=== PATIENT | female | born 1955 | race Caucasian/White ===

== ENCOUNTER 2016-11-21 10:09 | Emergency (ER) | payer OTHER ==
[~2016-11-21] VITALS: Ht 157.4 cm; Wt 1019.7 kg
[~2016-11-21 10:09] MED LIST: ALLERGY & CONG1 EACH PO; AMPICILLIN500 MG PO; ASPIRIN81 M1 PO; BACTRIM DS 8001 TA1 PO; CYCLOBENZAPRINE10 MG PO; DITROPAN XL5 MG PO; ESCITALOPRAM OX20 MG PO; FLOMAX0.4 MG PO; HYDROCODONE BIT1 T11 PO; K-TAB20 MEQ PO; LISINOPRIL/HCTZ1 TA3 PO; MACROBID100 M1 PO; MEDROL DOSEPAK4 MG PO; METFORMIN HCL500 MG PO; MOTRIN800 MG PO; NAPROSYN500 MG PO; NORCO 5-325 TA1 EACH PO; PAROXETIN10 MG PO; PAROXETINE HCL20 MG PO; PERCOCET 325 MG1 TA2 PO; PRILOSEC20 M1 PO; SIMVASTATIN10 MG PO; SYNTHROID,LEV100 MCG PO; TRAMADOL HCL50 MG PO; VICODIN 5/500 505 MG PO; VOLTAREN50 M1 PO; ZOFRAN ODT4 MG SL; ZOFRAN4 MG PO
[2016-11-21] MEDS ORDERED: NAPROSYN500 MG PO (11:49)
[2016-11-21] MEDS ORDERED: CYCLOBENZAPRINE10 MG PO (11:49)
== END 2016-11-21 12:11 | disposition home or self-care (01) ==
LOC: ED 10:09
DX: S13.9XXA Sprain of joints and ligaments of unspecified parts of neck, initial encounter (principal); Z79.82 Long term (current) use of aspirin; Z90.49 Acquired absence of other specified parts of digestive tract; X58.XXXA Exposure to other specified factors, initial encounter; Y93.89 Activity, other specified; Y92.9 Unspecified place or not applicable; Y99.9 Unspecified external cause status

== ENCOUNTER 2017-06-20 17:58 | Emergency (ER) | payer OTHER ==
[~2017-06-20] VITALS: Ht 157.4 cm; Wt 114.3 kg
[2017-06-20] MEDS ORDERED: CYCLOBENZAPRINE5 M3 PO (20:33)
[2017-06-20] MEDS ORDERED: NAPROSYN500 MG PO (20:33)
== END 2017-06-20 18:16 | disposition home or self-care (01) ==
LOC: ED 17:58
DX: M54.5 Low back pain (principal); R20.0 Anesthesia of skin; R20.2 Paresthesia of skin; Z79.899 Other long term (current) drug therapy

== ENCOUNTER 2017-07-24 20:10 | Emergency (ER) | payer OTHER ==
[~2017-07-24] VITALS: Ht 157.4 cm; Wt 108.0 kg
[~2017-07-24 20:10] MED LIST changes: +CYCLOBENZAPRINE5 M3 PO
== END 2017-07-24 21:56 | disposition home or self-care (01) ==
LOC: ED 20:10
DX: M17.12 Unilateral primary osteoarthritis, left knee (principal); Z79.899 Other long term (current) drug therapy

== ENCOUNTER → 2017-08-01 | Outpatient (CLI) | payer OTHER | END | disposition home or self-care (01) | LOC: US 00:31 | DX: K76.0 Fatty (change of) liver, not elsewhere classified (principal); Z90.49 Acquired absence of other specified parts of digestive tract ==

== ENCOUNTER 2017-09-17 12:20 | Emergency (ER) | payer OTHER ==
[~2017-09-17] VITALS: Ht 157.4 cm; Wt 108.0 kg
[2017-09-17 12:30] LABS: BASO % 0.7 % (0.0-1.0); EOS # 0.1 10*3/uL (0.0-0.4); HEMATOCRIT 37.5 % (37.0-47.0); HEMOGLOBIN 12.2 g/dl (12.0-16.0); LYMPH # 1.6 10*3/uL (1.3-4.4); LYMPH % 28.4 % (27.0-41.0); MEAN CELL VOLUME 85.4 fl (81.0-99.0); MEAN CORPUSCULAR HGB 27.8 pg (27.0-31.0); MEAN CORPUSCULAR HGB CONC 32.5 g/dl (33.0-37.0); MEAN PLATELET VOLUME 9.8 fl (9.6-12.3); MONO # 0.4 10*3/uL (0.1-1.0); MONO % 6.6 % (3.0-9.0); NEUT # 3.4 10*3/uL (2.3-7.9); NEUT % 62.1 % (47.0-73.0); PLATELET COUNT AUTOMATED 205 10*3/uL (130-400); RED BLOOD COUNT 4.39 10*6/uL (4.10-5.10); RED CELL DISTRI WIDTH 13.1 % (0-14.5); WHITE BLOOD COUNT 5.5 10*3/uL (4.8-10.8)
[2017-09-17 12:38] LABS: BILIRUBIN NEGATIVE (NEGATIVE); BLOOD NEGATIVE (NEGATIVE); CLARITY CLEAR (CLEAR); COLOR YELLOW (YELLOW); GLUCOSE NEGATIVE (NEGATIVE); KETONE NEGATIVE (NEGATIVE); LEUKO ESTERASE TRACE (NEGATIVE); NITRITE NEGATIVE (NEGATIVE); PH 5.5 (5.0-9.0); SPECIFIC GRAVITY 1.025 (1.005-1.030); UROBILINOGEN 0.2 E.U./dl (0.2-1.0)
[2017-09-17 12:51] LABS: ALBUMIN 3.5 gm/dl (3.1-4.5); ALKALINE PHOSPHATASE 121 U/L (45-117); BUN 18 mg/dl (7-24); CHLORIDE 112 mmol/L (98-107); CREATININE 0.95 mg/dL (0.55-1.02); POTASSIUM 4.3 mmol/L (3.5-5.1); SGOT/AST 24 IU/L (3-35); SGPT/ALT 33 U/L (12-78); SODIUM 144 mmol/L (136-145); TOTAL PROTEIN 6.8 gm/dL (6.4-8.2)
[2017-09-17 12:51] LABS: BACTERIA TRACE
[2017-09-17] MEDS ORDERED: PYRIDIUM200 M1 PO (14:06)
[2017-09-17] MEDS ORDERED: MACROBID100 M1 PO (14:06)
== END 2017-09-17 14:09 | disposition home or self-care (01) ==
LOC: ED 12:20
PROVIDERS: Nurse Practitioner Family
DX: N39.0 Urinary tract infection, site not specified (principal); R10.31 Right lower quadrant pain; Z90.710 Acquired absence of both cervix and uterus; Z90.49 Acquired absence of other specified parts of digestive tract; Z79.899 Other long term (current) drug therapy

== ENCOUNTER 2017-09-24 08:24 | Emergency (ER) | payer OTHER ==
[~2017-09-24] VITALS: Ht 157.4 cm; Wt 108.0 kg
[~2017-09-24 08:24] MED LIST changes: +PYRIDIUM200 M1 PO
[2017-09-24 08:59] LABS: BASO % 0.3 % (0.0-1.0); EOS # 0.1 10*3/uL (0.0-0.4); EOS % 1.8 % (1.0-4.0); HEMATOCRIT 38.8 % (37.0-47.0); HEMOGLOBIN 12.7 g/dl (12.0-16.0); LYMPH # 1.4 10*3/uL (1.3-4.4); LYMPH % 19.1 % (27.0-41.0); MEAN CELL VOLUME 85.5 fl (81.0-99.0); MEAN CORPUSCULAR HGB CONC 32.7 g/dl (33.0-37.0); MONO # 0.4 10*3/uL (0.1-1.0); MONO % 5.4 % (3.0-9.0); NEUT # 5.4 10*3/uL (2.3-7.9); NEUT % 73.1 % (47.0-73.0); PLATELET COUNT AUTOMATED 205 10*3/uL (130-400); RED BLOOD COUNT 4.54 10*6/uL (4.10-5.10); RED CELL DISTRI WIDTH 13.1 % (0-14.5); WHITE BLOOD COUNT 7.4 10*3/uL (4.8-10.8)
[2017-09-24 09:03] LABS: BILIRUBIN NEGATIVE (NEGATIVE); BLOOD NEGATIVE (NEGATIVE); CLARITY SL CLOUDY (CLEAR); COLOR YELLOW (YELLOW); GLUCOSE NEGATIVE (NEGATIVE); KETONE NEGATIVE (NEGATIVE); LEUKO ESTERASE TRACE (NEGATIVE); NITRITE NEGATIVE (NEGATIVE)
[2017-09-24 09:07] LABS: ACT PARTIAL THROMBO TIME 22.3 SECONDS (20.8-31.5); INTERNATIONAL NORM RATIO 0.9 (2.0-3.5)
[2017-09-24 09:15] LABS: ALBUMIN 3.7 gm/dl (3.1-4.5); ALKALINE PHOSPHATASE 127 U/L (45-117); BUN 16 mg/dl (7-24); CHLORIDE 109 mmol/L (98-107); CREATININE 0.81 mg/dL (0.55-1.02); POTASSIUM 3.9 mmol/L (3.5-5.1); SGOT/AST 24 IU/L (3-35); SGPT/ALT 38 U/L (12-78); SODIUM 142 mmol/L (136-145)
[2017-09-24 09:16] LABS: TROPONIN I < 0.015 ng/ml (<0.045)
[2017-09-24 09:26] LABS: BACTERIA 1+; EPITHELIAL CELLS 16-20
[2017-09-24] MEDS ORDERED: CIPRO500 MG PO (10:09)
== END 2017-09-24 10:14 | disposition home or self-care (01) ==
LOC: ED 08:24
PROVIDERS: Emergency Medicine
DX: N39.0 Urinary tract infection, site not specified (principal); R10.11 Right upper quadrant pain; E66.01 Morbid (severe) obesity due to excess calories; I10 Essential (primary) hypertension; Z87.442 Personal history of urinary calculi; Z90.710 Acquired absence of both cervix and uterus; Z90.49 Acquired absence of other specified parts of digestive tract; Z98.890 Other specified postprocedural states; Z79.899 Other long term (current) drug therapy

== ENCOUNTER 2017-09-30 13:33 | Emergency (ER) | payer OTHER ==
[~2017-09-30 13:33] MED LIST changes: +CIPRO500 MG PO
[2017-09-30 14:09] LABS: BILIRUBIN NEGATIVE (NEGATIVE); BLOOD NEGATIVE (NEGATIVE); CLARITY CLEAR (CLEAR); COLOR YELLOW (YELLOW); GLUCOSE NEGATIVE (NEGATIVE); KETONE NEGATIVE (NEGATIVE); LEUKO ESTERASE NEGATIVE (NEGATIVE); NITRITE NEGATIVE (NEGATIVE); PH 5.5 (5.0-9.0); SPECIFIC GRAVITY >= 1.030 (1.005-1.030); UROBILINOGEN 0.2 E.U./dl (0.2-1.0)
[2017-09-30 14:48] LABS: BASO % 0.4 % (0.0-1.0); EOS # 0.1 10*3/uL (0.0-0.4); EOS % 0.8 % (1.0-4.0); HEMATOCRIT 39.3 % (37.0-47.0); LYMPH # 2.1 10*3/uL (1.3-4.4); LYMPH % 19.7 % (27.0-41.0); MEAN CELL VOLUME 85.2 fl (81.0-99.0); MEAN CORPUSCULAR HGB 28.2 pg (27.0-31.0); MEAN CORPUSCULAR HGB CONC 33.1 g/dl (33.0-37.0); MEAN PLATELET VOLUME 10.2 fl (9.6-12.3); MONO # 0.7 10*3/uL (0.1-1.0); MONO % 6.3 % (3.0-9.0); NEUT # 7.7 10*3/uL (2.3-7.9); NEUT % 72.5 % (47.0-73.0); PLATELET COUNT AUTOMATED 213 10*3/uL (130-400); RED BLOOD COUNT 4.61 10*6/uL (4.10-5.10); WHITE BLOOD COUNT 10.6 10*3/uL (4.8-10.8)
[2017-09-30 15:06] LABS: ALBUMIN 3.6 gm/dl (3.1-4.5); ALKALINE PHOSPHATASE 141 U/L (45-117); BUN 23 mg/dl (7-24); CHLORIDE 108 mmol/L (98-107); CREATININE 0.82 mg/dL (0.55-1.02); LIPASE 129 U/L (73-393); POTASSIUM 3.6 mmol/L (3.5-5.1); SGOT/AST 10 IU/L (3-35); SGPT/ALT 36 U/L (12-78); SODIUM 139 mmol/L (136-145); TOTAL PROTEIN 7.2 gm/dL (6.4-8.2)
[2017-09-30] MEDS ORDERED: ROBAXIN500 M1 PO (18:29)
[2017-09-30] MEDS ORDERED: MOBIC7.5 MG PO (18:29)
== END 2017-09-30 18:51 | disposition home or self-care (01) ==
LOC: ED 13:33
PROVIDERS: Physician Assistant
DX: M54.5 Low back pain (principal); Z90.710 Acquired absence of both cervix and uterus; Z90.49 Acquired absence of other specified parts of digestive tract; Z79.899 Other long term (current) drug therapy

== ENCOUNTER 2017-10-23 19:51 | Inpatient (IN) | payer OTHER ==
[~2017-10-23] VITALS: Ht 157.4 cm; Wt 108.6 kg
[~2017-10-23 19:51] MED LIST changes: +MOBIC7.5 MG PO; +ROBAXIN500 M1 PO
[2017-10-23 19:53] VITALS: BP 137/90
[2017-10-23 20:21] LABS: BASO % 0.3 % (0.0-1.0); EOS # 0.1 10*3/uL (0.0-0.4); EOS % 0.9 % (1.0-4.0); HEMATOCRIT 35.5 % (37.0-47.0); HEMOGLOBIN 11.9 g/dl (12.0-16.0); LYMPH # 1.7 10*3/uL (1.3-4.4); LYMPH % 18.4 % (27.0-41.0); MEAN CELL VOLUME 84.5 fl (81.0-99.0); MEAN CORPUSCULAR HGB 28.3 pg (27.0-31.0); MEAN CORPUSCULAR HGB CONC 33.5 g/dl (33.0-37.0); MEAN PLATELET VOLUME 10.5 fl (9.6-12.3); MONO # 0.6 10*3/uL (0.1-1.0); MONO % 6.3 % (3.0-9.0); NEUT # 6.9 10*3/uL (2.3-7.9); NEUT % 73.9 % (47.0-73.0); PLATELET COUNT AUTOMATED 197 10*3/uL (130-400); RED CELL DISTRI WIDTH 13.2 % (0-14.5); WHITE BLOOD COUNT 9.4 10*3/uL (4.8-10.8)
[2017-10-23 20:42] LABS: ALBUMIN 3.7 gm/dl (3.1-4.5); ALKALINE PHOSPHATASE 142 U/L (45-117); BUN 30 mg/dl (7-24); CHLORIDE 106 mmol/L (98-107); CREATININE 1.45 mg/dL (0.55-1.02); POTASSIUM 3.6 mmol/L (3.5-5.1); SGOT/AST 25 IU/L (3-35); SGPT/ALT 54 U/L (12-78); SODIUM 141 mmol/L (136-145); TOTAL PROTEIN 7.1 gm/dL (6.4-8.2)
[2017-10-23 20:44] LABS: TROPONIN I < 0.015 ng/ml (<0.045)
[2017-10-23] MEDS ORDERED: LEXAPRO5 M1 PO (21:56)
[2017-10-23 22:11] VITALS: BP 145/81
[2017-10-23 22:20] VITALS: BP 146/74
[2017-10-24] VITALS: BP 113/53
[2017-10-24 06:32] LABS: BASO % 0.3 % (0.0-1.0); EOS # 0.1 10*3/uL (0.0-0.4); EOS % 2.1 % (1.0-4.0); HEMATOCRIT 34.4 % (37.0-47.0); HEMOGLOBIN 10.9 g/dl (12.0-16.0); LYMPH # 1.7 10*3/uL (1.3-4.4); LYMPH % 27.8 % (27.0-41.0); MEAN CELL VOLUME 86.4 fl (81.0-99.0); MEAN CORPUSCULAR HGB 27.4 pg (27.0-31.0); MEAN CORPUSCULAR HGB CONC 31.7 g/dl (33.0-37.0); MEAN PLATELET VOLUME 9.8 fl (9.6-12.3); MONO # 0.4 10*3/uL (0.1-1.0); MONO % 6.1 % (3.0-9.0); NEUT # 3.9 10*3/uL (2.3-7.9); NEUT % 63.5 % (47.0-73.0); PLATELET COUNT AUTOMATED 160 10*3/uL (130-400); RED BLOOD COUNT 3.98 10*6/uL (4.10-5.10); RED CELL DISTRI WIDTH 13.2 % (0-14.5); WHITE BLOOD COUNT 6.1 10*3/uL (4.8-10.8)
[2017-10-24 07:07] LABS: BUN 23 mg/dl (7-24); CHLORIDE 109 mmol/L (98-107); CHOLESTEROL 173 mg/dL (<200); CREATININE 0.92 mg/dL (0.55-1.02); PHOSPHOROUS 2.9 mg/dL (2.5-4.9); POTASSIUM 3.5 mmol/L (3.5-5.1); SODIUM 142 mmol/L (136-145); TRIGLYCERIDES 69 mg/dl (<150); VLDL CHOLESTEROL 14 mg/dL (6-40)
[2017-10-24 07:17] LABS: FREE T4 1.18 ng/dl (0.76-1.46); HDL CHOLESTEROL 65 mg/dl (40-60); LDL CHOLESTEROL 94 mg/dL (9-159); THYROID STIM HORMONE (HS) 0.548 uIU/ml (0.358-4.75)
[2017-10-24 07:54] LABS: VITAMIN D, 25-HYDROXY 20.1 ng/mL (30-100)
[2017-10-24 08:00] VITALS: BP 130/63; BP 137/41
[2017-10-24 09:28] LABS: BILIRUBIN NEGATIVE (NEGATIVE); BLOOD NEGATIVE (NEGATIVE); CLARITY CLEAR (CLEAR); COLOR YELLOW (YELLOW); GLUCOSE NEGATIVE (NEGATIVE); KETONE NEGATIVE (NEGATIVE); LEUKO ESTERASE TRACE (NEGATIVE); NITRITE NEGATIVE (NEGATIVE); PH 6.5 (5.0-9.0); SPECIFIC GRAVITY 1.015 (1.005-1.030); UROBILINOGEN 0.2 E.U./dl (0.2-1.0)
[2017-10-24 09:36] LABS: BACTERIA TRACE
[2017-10-24] MEDS ORDERED: VITAMIN D-32000 UNI1 PO (10:02)
[2017-10-24] MEDS ORDERED: LISINOPRIL10 M1 PO (10:02)
== END 2017-10-24 10:49 | disposition home or self-care (01) | DRG 683 ==
LOC: ED 19:51 → EDHOLD 21:14 → 5E 22:05
PROVIDERS: Internal Medicine; Nurse Practitioner Family
DX: N17.9 Acute kidney failure, unspecified (principal); E44.0 Moderate protein-calorie malnutrition; E11.65 Type 2 diabetes mellitus with hyperglycemia; E66.01 Morbid (severe) obesity due to excess calories; F33.9 Major depressive disorder, recurrent, unspecified; E11.9 Type 2 diabetes mellitus without complications; D64.9 Anemia, unspecified; E03.9 Hypothyroidism, unspecified; Z68.41 Body mass index [BMI] 40.0-44.9, adult; R55 Syncope and collapse; F41.9 Anxiety disorder, unspecified; E78.2 Mixed hyperlipidemia; I10 Essential (primary) hypertension; M13.862 Other specified arthritis, left knee; E86.0 Dehydration; Z87.442 Personal history of urinary calculi; Z90.710 Acquired absence of both cervix and uterus; Z82.49 Family history of ischemic heart disease and other diseases of the circulatory system; Z83.3 Family history of diabetes mellitus; Z79.899 Other long term (current) drug therapy; Z80.3 Family history of malignant neoplasm of breast; Z90.49 Acquired absence of other specified parts of digestive tract

== ENCOUNTER 2018-03-17 16:31 | Emergency (ER) | payer OTHER ==
[~2018-03-17] VITALS: Ht 160 cm; Wt 108.0 kg
[~2018-03-17 16:31] MED LIST changes: +LEXAPRO5 M1 PO; +LISINOPRIL10 M1 PO; +VITAMIN D-32000 UNI1 PO
[2018-03-17 17:03] LABS: BASO % 0.4 % (0.0-1.0); EOS # 0.1 10*3/uL (0.0-0.4); EOS % 1.8 % (1.0-4.0); HEMATOCRIT 37.8 % (37.0-47.0); HEMOGLOBIN 12.7 g/dl (12.0-16.0); LYMPH % 27.9 % (27.0-41.0); MEAN CELL VOLUME 85.5 fl (81.0-99.0); MEAN CORPUSCULAR HGB 28.7 pg (27.0-31.0); MEAN CORPUSCULAR HGB CONC 33.6 g/dl (33.0-37.0); MEAN PLATELET VOLUME 9.9 fl (9.6-12.3); MONO # 0.3 10*3/uL (0.1-1.0); MONO % 4.7 % (3.0-9.0); NEUT # 4.6 10*3/uL (2.3-7.9); NEUT % 64.9 % (47.0-73.0); PLATELET COUNT AUTOMATED 217 10*3/uL (130-400); RED BLOOD COUNT 4.42 10*6/uL (4.10-5.10); RED CELL DISTRI WIDTH 12.8 % (0-14.5); WHITE BLOOD COUNT 7.2 10*3/uL (4.8-10.8)
[2018-03-17 17:17] LABS: ALBUMIN 3.5 gm/dl (3.1-4.5); ALKALINE PHOSPHATASE 143 U/L (45-117); BUN 18 mg/dl (7-24); CHLORIDE 105 mmol/L (98-107); CREATININE 0.88 mg/dL (0.55-1.02); LIPASE 128 U/L (73-393); POTASSIUM 4.2 mmol/L (3.5-5.1); SGOT/AST 32 IU/L (3-35); SGPT/ALT 53 U/L (12-78); SODIUM 140 mmol/L (136-145); TOTAL PROTEIN 6.8 gm/dL (6.4-8.2)
[2018-03-17 19:36] LABS: BILIRUBIN NEGATIVE (NEGATIVE); BLOOD NEGATIVE (NEGATIVE); CLARITY CLEAR (CLEAR); COLOR YELLOW (YELLOW); GLUCOSE NEGATIVE (NEGATIVE); KETONE NEGATIVE (NEGATIVE); LEUKO ESTERASE TRACE (NEGATIVE); NITRITE NEGATIVE (NEGATIVE); SPECIFIC GRAVITY 1.025 (1.005-1.030); UROBILINOGEN 0.2 E.U./dl (0.2-1.0)
[2018-03-17 19:44] LABS: BACTERIA 3+; RBC 0-2 rbc/hpf (0-2)
[2018-03-17] MEDS ORDERED: AMINOPHYLLIN200 MG PO (23:33)
[2018-03-17] MEDS ORDERED: Motrin,Rufen800 MG PO (23:33)
[2018-03-17] MEDS ORDERED: CYCLOBENZAPRINE5 M3 PO (23:33)
== END 2018-03-17 23:37 | disposition home or self-care (01) ==
LOC: ED 16:31
PROVIDERS: Physician Assistant
DX: R10.813 Right lower quadrant abdominal tenderness (principal); Z79.899 Other long term (current) drug therapy; Z87.442 Personal history of urinary calculi; Z90.710 Acquired absence of both cervix and uterus; Z90.49 Acquired absence of other specified parts of digestive tract

== ENCOUNTER 2018-03-20 08:11 | Emergency (ER) | payer OTHER ==
[~2018-03-20] VITALS: Wt 108.0 kg
[~2018-03-20 08:11] MED LIST changes: +AMINOPHYLLIN200 MG PO; +Motrin,Rufen800 MG PO
== END 2018-03-20 09:58 | disposition home or self-care (01) ==
LOC: ED 08:11
DX: S39.012A Strain of muscle, fascia and tendon of lower back, initial encounter (principal); R30.0 Dysuria; R35.0 Frequency of micturition; E11.9 Type 2 diabetes mellitus without complications; I10 Essential (primary) hypertension; E03.9 Hypothyroidism, unspecified; E78.2 Mixed hyperlipidemia; E66.1 Drug-induced obesity; Z79.899 Other long term (current) drug therapy; X58.XXXA Exposure to other specified factors, initial encounter; Y93.89 Activity, other specified; Y92.89 Other specified places as the place of occurrence of the external cause; Y99.8 Other external cause status

== ENCOUNTER 2018-04-22 09:40 | Emergency (ER) | payer OTHER ==
[~2018-04-22] VITALS: Ht 157.4 cm; Wt 105.2 kg
[~2018-04-22 09:40] MED LIST changes: +GLUCOPHAGE500 M1 PO; -METFORMIN HCL500 MG PO; -SYNTHROID,LEV100 MCG PO; +Synthroid,Lev100 MCG PO
[2018-04-22 10:37] LABS: BILIRUBIN 1+ (NEGATIVE); BLOOD TRACE-INTACT (NEGATIVE); CLARITY SL CLOUDY (CLEAR); COLOR YELLOW (YELLOW); GLUCOSE NEGATIVE (NEGATIVE); KETONE 1+ (NEGATIVE); LEUKO ESTERASE 1+ (NEGATIVE); NITRITE NEGATIVE (NEGATIVE); PH 6.5 (5.0-9.0); SPECIFIC GRAVITY 1.025 (1.005-1.030); UROBILINOGEN 0.2 E.U./dl (0.2-1.0)
[2018-04-22 10:47] LABS: MUCOUS 2+; WBC 21-30 wbc/hpf (0-5)
[2018-04-22 10:52] LABS: URINE AMPHETAMINES < 1000 (1000ng/ml); URINE BARBITURATES < 200 (200ng/ml); URINE BENZODIAZEPINES < 200 (200ng/ml); URINE CANNABINOIDS (THC) < 50 (50ng/ml); URINE METHADONE < 300 (300ng/ml); URINE OPIATES > 300 (300ng/ml)
[2018-04-22 10:54] LABS: URINE COCAINE < 300 (300ng/ml)
[2018-04-22 10:55] LABS: URINE PHENCYCLIDINE < 25 (25ng/ml)
[2018-04-22] MEDS ORDERED: LEVOFLOXACIN250 M2 PO (13:19)
[2018-04-22] MEDS ORDERED: NORCO 10-325 T1 EACH PO (13:19)
[2018-04-22] MEDS ORDERED: Motrin,Rufen800 MG PO (13:19)
== END 2018-04-22 13:45 | disposition home or self-care (01) ==
LOC: ED 09:40
PROVIDERS: Emergency Medicine
DX: N39.0 Urinary tract infection, site not specified (principal); E11.9 Type 2 diabetes mellitus without complications; I10 Essential (primary) hypertension; E03.9 Hypothyroidism, unspecified; E78.2 Mixed hyperlipidemia; E66.01 Morbid (severe) obesity due to excess calories; Z79.2 Long term (current) use of antibiotics; Z79.899 Other long term (current) drug therapy; Z79.84 Long term (current) use of oral hypoglycemic drugs; Z87.442 Personal history of urinary calculi; Z90.710 Acquired absence of both cervix and uterus

== ENCOUNTER 2018-04-24 12:04 | Inpatient (IN) | payer OTHER ==
[~2018-04-24] VITALS: Ht 160 cm; Wt 105.2 kg
--- NOTE | ~2018-04-24 | DS ---
[place], [place] DISCHARGE SUMMARY [id number] UN[facility] #: [id number] ROOM: 316 DOCTOR: MOIZ JACKSON MD BIRTHDATE: [birth year] DOS: 05/01/2018 CHIEF COMPLAINT: "I just can't take the pain. I can't go on like this." HISTORY OF PRESENT ILLNESS: This is a 62-year-old white female who presented to the Emergency Room at [facility] accompanied by EMS. The patient was found in her bathtub with bilateral cuts on her wrist in an apparent suicide attempt. She was covered in blood and had to be taken to the Emergency Room where she required multiple stitches in order to suture the wound. The patient reports that this was an active suicide attempt and that she has been increasingly depressed and despondent since the pain started in 02/2018. 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 The patient has no previous psychiatric history and has only received help from her primary care physician who has prescribed Lexapro, which has been ineffective. She has never seen a counselor. She is admitted now to rule out any organic factors, to stabilize on medication, to engage in individual and sen milieu activity and then to determine the least restrictive environment to which she could be discharged to. SUMMARY OF HOSPITAL COURSE: The patient was admitted to the hospital where she had her Lexapro discontinued due to ineffectiveness. She was started on Cymbalta 30 mg at bedtime. Additionally, Neurontin 100 mg 3 times a day was added and she was prescribed Zostrix high potency cream three times a day to her back in order to help decrease pain. The hope was that the Cymbalta and the Neurontin would have multi benefits in decreasing pain, anxiety and also combating significant depression. She tolerated these medications well and both were rapidly increased and this rapid increase was well tolerated. Cymbalta was gradually brought up then to its maximum dose of 60 mg b.i.d., while Neurontin was brought up to 600 mg 3 times a day. With these medication changes, the patient noted that her pain level went from a consistent 9 or 10 on a scale of 1-10 with 10 being the worst, to 2-3. She was much more hopeful that she would be able to get relief in her life and was able to sleep at night, attend to her ADLs, attend to groups and function more normally. The patient voiced a willingness and a readiness to return home and voiced positive plans for the future. MENTAL STATUS AT DISCHARGE: The patient was alert and oriented to person, place, and time. Mood was strongly trending towards euthymia. Affect was much more appropriate. There was no monae or hypomania, likewise there were no overt auditory or visual hallucinations. No delusions, no paranoia. Short, intermediate, and long-term memory were fully intact. FINAL DIAGNOSIS: Major depression, recurrent. PLAN: Cymbalta has been e-scribed to [facility]. Her Zostrix high potency cream and Neurontin have been printed. I have given her a slip to remain off work until 06/11/2018. This will allow her time to see the client specialist to determine if further intervention is required to prevent further [place], [place] DISCHARGE SUMMARY NAME: MARCO WELCH UNIT #: [id number] ROOM: 316 DOCTOR: MOIZ JACKSON MD BIRTHDATE: [birth year] damage to her back. MOIZ JACKSON MD CM:DISCHARG [id number] MOIZ JACKSON MD 05/01/18 1300 interface
--- NOTE | ~2018-04-24 | PR ---
[place], [place] [facility]GRESS NOTE [id number] #: [id number] ROOM: 316 DOCTOR: ENRICO OSBORNE CNP BIRTHDATE: [birth year] DOS: 04/27/2018 CHIEF COMPLAINT: "I am doing much better." SUMMARY OF THE VISIT: The patient was interviewed as she lies in her bed. She engaged readily in conversation with me. She reports that she was having some pain this morning; however, she took a pain pill and this has helped. She does feel that the Cymbalta and the Neurontin are helping her pain and it is much improved now. She denies any suicidal ideation. She reports that her mood is better. She denies feeling anxious. She reports that she has a good appetite and that she did sleep well last night. MENTAL STATUS EXAMINATION: She is alert and oriented to person, place and time. Her mood appears to be trending more toward euthymia. There is no overt monae or hypomania noted. No delusions or paranoia noted. No auditory or visual hallucinations noted. Her speech was clear. Eye contact was fair. PLAN: We will increase the Cymbalta to 60 mg twice a day. We will plan to titrate Neurontin as needed and as tolerated. We will continue to encourage the patient to engage in individual and sen milieu activity. We will continue fall and safety precautions. We will plan to return the patient to the least restrictive environment when she is considered psychiatrically stable. Enrico Osborne CNP CM:PNCYRIL [id number] ENRICO OSBORNE CNP 04/28/18 0637 interface
--- NOTE | ~2018-04-24 | PR ---
[place], [place] PROGRESS NOTE [id number] #: [id number] ROOM: 316 DOCTOR: MOIZ JACKSON MD BIRTHDATE: [birth year] DOS: 04/30/2018 CHIEF COMPLAINT: "I am feeling so much better." SUMMARY OF THE VISIT: The patient was interviewed as she was sitting, eating her breakfast. She reported to me that she is feeling better, sleeping better and now rates the pain on a scale of 1-10 with 10 being the worst a 2. On admission, she reported that it was a 10. She does report no side effects from the medicine and there is no sedation or somnolence noted. The patient is very hopeful that she further benefit as time goes on. MENTAL STATUS: She is alert and oriented. Mood does seem to be strongly trending towards euthymia. Affect is much more appropriate. There is no monae or hypomania. Likewise, there are no gross psychotic symptoms. Memory for the most part is fully intact. PLAN: I will increase her Neurontin from 400 mg 3 times a day to 600 mg 3 times daily to see if we can achieve further benefit. We will continue to engage her in individual and sen milieu activity. She is scheduled for an MRI of her back today. Pending results, we will determine if she will be discharged soon. MOIZ JACKSON MD CM:PNTRANS [id number] MOIZ JACKSON MD 04/30/18 0930 interface
--- NOTE | ~2018-04-24 | PR ---
[place], [place] PROGRESS NOTE NAME: MARCO WELCH UNIT #: [id number] ROOM: 316 DOCTOR: MOIZ JACKSON MD BIRTHDATE: [birth year] DOS: 04/26/2018 INTERVAL NOTE CHIEF COMPLAINT: "Their cream is wonderful, my pain maybe is a little less." SUMMARY OF THE VISIT: The patient was interviewed in the back of the dining area where she was sitting eating her breakfast. She engaged readily in conversation and broke down crying once again. She continues to complain of increased depression, but does state she has some hope because the medicines do seem to already be helping decrease her overall level of pain and aid her sleep. She is voicing positive plans for the future and plans ultimately to move in with her sister into [place]. She does want to quit her job and obtain Medicaid and is also looking forward to seeing a specialist for her back, although she is not wanting to have surgery at this point. MENTAL STATUS: She is alert and oriented. Mood does still seem to be depressed, but improving. There is no monae or hypomania. There is no gross psychosis. Memory for the most part is intact. PLAN: I will increase Neurontin from 100 mg 3 times a day to 200 mg 3 times a day while simultaneously increasing the Cymbalta to 30 mg in the morning and 60 mg at night. I will target a dose of Cymbalta of 120 mg daily and continue to titrate the Neurontin as needed and as tolerated. We will engage in individual and sen milieu activity, returning then to the least restrictive environment when psychiatrically stable. MOIZ JACKSON MD CM:PNTRANS [id number] MOIZ JACKSON MD 04/27/18 0435 interface
--- NOTE | ~2018-04-24 | WRIGHTHP ---
[place], [place] PATIENT HISTORY AND PHYSICAL EXAM [id number] #: [id number] ROOM: 316 DOCTOR: MOIZ JACKSON MD BIRTHDATE: [birth year] DOS: 04/25/2018 INITIAL PSYCHIATRIC EVALUATION CHIEF COMPLAINT: "I just can't take the pain. I can't go on like this." HISTORY OF PRESENT ILLNESS: This is a 62-year-old white female who presented to the Emergency Room at [facility] accompanied by EMS. The patient was found in her bathtub with bilateral cut wrists in a suicide attempt. She was covered in blood when family intervened. The patient reported to the Emergency Room doctors that she felt that killing herself was the only way she could rid herself from the horrible back pain. The patient reports that the pain started in February, and she had been on some pain meds which had helped along with physical therapy. This treatment regimen was working and then it did quit working in the end of March and became so uncontrollable that she could not function. 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 The patient denies any previous psychiatric history. She has never seen a psychiatrist, nor has she seen a counselor. Her family doctor has prescribed Lexapro for the depression, which has been ineffective to date. She is now admitted to the [facility] to rule out further organic factors to attempt to stabilize on medication, to engage in individual and sen milieu activity, returning then to the least restrictive environment when psychiatrically stable. PAST MEDICAL HISTORY: Remarkable for acute renal failure, anemia, chronic back pain, degenerative arthritis in her left knee, diabetes, hypertension, hypothyroidism, kidney stones, hyperlipidemia, moderate protein calorie malnutrition, and morbid obesity. SOCIAL HISTORY: The patient does not smoke cigarettes. She does not use smokeless tobacco products. She is a social drinker, but does not use any illicit drugs. STRENGTHS: Ambulatory, good verbal skills. WEAKNESSES: Chronic pain, poor coping skills. MENTAL STATUS: The patient is alert and oriented x 3. Mood is overwhelmingly depressed. She is rather flat and blunted, but sob throughout the interview, reporting that she cannot go on like this. She endorses multiple neurovegetative symptoms. She currently denies suicidal thoughts and does report significant remorse for her action. She is open to getting help and is hopeful that help will be able to be obtained. There is no hypomania or monae present. There are no gross psychotic symptoms present. Memory for the most part is totally intact. DIAGNOSIS: Major depression, recurrent. PLAN: I have already discontinued her Lexapro in lieu of Cymbalta 30 mg at [place], [place] PATIENT HISTORY AND PHYSICAL EXAM NAME: MARCO WELCH UNIT #: [id number] ROOM: [facility] DOCTOR: MOIZ JACKSON MD BIRTHDATE: [birth year] bedtime. She has tolerated this well last night. I will go ahead and increase this to 60 mg at bedtime with a target dose of 120 mg a day. I will add Neurontin 100 mg 3 times a day to help not only with her mood, but also as another agent to decrease her pain. I will also order Zostrix high potency cream three times daily to utilize to decrease her pain. We will consult Dr. Fulton to see if there is any other intervention that could be helpful in relieving the patient's pain and also consult Dr. Zaria Eric for psychological counseling, engage in individual and sen milieu activity, returning to the least restrictive environment when psychiatrically stable. MOIZ JACKSON MD CM:HISPHYS:PATIENT HISTORY AND PHYSICAL EXAMINATION [phone] MOIZ JACKSON MD 04/25/18 0932 interface
--- NOTE | ~2018-04-24 | PR ---
[place], [place] PROGRESS NOTE NAME: [id number] UNIT #: [id number] ROOM: 316 DOCTOR: ENRICO OSBORNE CNP BIRTHDATE: [birth year] DOS: 04/28/2018 CHIEF COMPLAINT: "My pain was really bad yesterday." SUMMARY OF THE VISIT: The patient was interviewed as she lying in her bed. She engaged readily in conversation. She reports that she continues to have pain; however, the Cymbalta and the Neurontin seemed to be helping somewhat. She reports that her mood is improving. She denies any suicidal ideation. The patient only slept for a few hours last night, she reports due to a peer yelling in the hallway. Staff reports that the patient has shown improvement in her mood. MENTAL STATUS EXAMINATION: She is alert and oriented to person, place and time. She is pleasant and cooperative. There is no monae or hypomania noted. No delusions or paranoia noted. No auditory or visual hallucinations noted. Speech is clear. Her eye contact was good. Her mood seems to be trending toward euthymia. Affect is congruent with mood. The patient's insight and judgment appeared to be fair. Her thought process and thought content are normal. PLAN: I will increase the patient's Neurontin from 200 mg 3 times a day to 300 mg 3 times a day. Cymbalta was increased yesterday to 60 mg b.i.d. We will continue to titrate Neurontin as needed and as tolerated. We will continue to encourage the patient to engage in individual and sen milieu activity. Continue fall and safety precautions. Plan to return the patient to the least restrictive environment once she is considered psychiatrically stable. Enrico Osborne CNP CM:PNTRANS [phone] ENRICO OSBORNE CNP 04/28/18 1148 interface
--- NOTE | ~2018-04-24 | EKG ---
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
--- NOTE | ~2018-04-24 | PR ---
[place], [place] PROGRESS NOTE [id number] UNIT #: [id number] ROOM: 316 DOCTOR: MOIZ JACKSON MD BIRTHDATE: [birth year] DOS: 04/29/2018 CHIEF COMPLAINT: "I don't want to leave here until the pain is under better control." SUMMARY OF THE VISIT: The patient was interviewed as she was sitting in the back of the dining area. She engaged readily in conversation and was once again on the verge of tears. She did report that she did not sleep well last night. She does report on a positive note that the pain has lessened, but is still very prominent, and it is very bothersome for her nonetheless. She is still outwardly depressed. She is tolerating the current medication regimen well without any sedation, somnolence, or other side effects. MENTAL STATUS: She is alert and oriented with time gaps. Mood does seem to be trending towards euthymia, but is still very depressed. There is no hypomania, monae or psychosis. Short term, intermediate, and long-term memory for the most part are intact. PLAN: I will go ahead and continue to increase her Neurontin bringing it from 300 mg 3 times a day to 400 mg 3 times a day. I will add Rozerem p.r.n. for sleep. Maintain Cymbalta at 60 mg b.i.d. Continue to engage in individual and sen milieu activity, returning to the least restrictive environment when psychiatrically stable. MOIZ JACKSON MD CM:PNTRANS [phone] MOIZ JACKSON MD 04/29/18 1122 interface
[2018-04-24 12:04] VITALS: BP 154/78
[~2018-04-24 12:04] MED LIST changes: +LEVOFLOXACIN250 M2 PO; +NORCO 10-325 T1 EACH PO
[2018-04-24 12:46] LABS: BASO % 0.3 % (0.0-1.0); EOS % 0.1 % (1.0-4.0); HEMATOCRIT 44.2 % (37.0-47.0); HEMOGLOBIN 14.8 g/dl (12.0-16.0); LYMPH # 1.2 10*3/uL (1.3-4.4); LYMPH % 8.9 % (27.0-41.0); MEAN CORPUSCULAR HGB 28.5 pg (27.0-31.0); MEAN CORPUSCULAR HGB CONC 33.5 g/dl (33.0-37.0); MEAN PLATELET VOLUME 9.5 fl (9.6-12.3); MONO # 0.7 10*3/uL (0.1-1.0); NEUT # 11.3 10*3/uL (2.3-7.9); NEUT % 85.2 % (47.0-73.0); PLATELET COUNT AUTOMATED 320 10*3/uL (130-400); RED CELL DISTRI WIDTH 13.2 % (0-14.5); WHITE BLOOD COUNT 13.3 10*3/uL (4.8-10.8)
[2018-04-24 13:02] LABS: ALBUMIN 3.9 gm/dl (3.1-4.5); ALKALINE PHOSPHATASE 146 U/L (45-117); BUN 23 mg/dl (7-24); CHLORIDE 108 mmol/L (98-107); CREATININE 1.11 mg/dL (0.55-1.02); ETHYL ALCOHOL < 3.0 mg/dl (<3); POTASSIUM 3.1 mmol/L (3.5-5.1); SGOT/AST 16 IU/L (3-35); SGPT/ALT 33 U/L (12-78); SODIUM 143 mmol/L (136-145); TOTAL PROTEIN 7.9 gm/dL (6.4-8.2); TROPONIN I < 0.015 ng/ml (<0.045)
[2018-04-24 13:13] LABS: ACETAMINOPHEN (TYLENOL) < 5.0 ug/ml (10-30)
[2018-04-24 14:08] LABS: BILIRUBIN 1+ (NEGATIVE); BLOOD NEGATIVE (NEGATIVE); CLARITY SL CLOUDY (CLEAR); COLOR YELLOW (YELLOW); GLUCOSE NEGATIVE (NEGATIVE); KETONE 2+ (NEGATIVE); LEUKO ESTERASE 1+ (NEGATIVE); NITRITE NEGATIVE (NEGATIVE); SPECIFIC GRAVITY 1.025 (1.005-1.030); UROBILINOGEN 0.2 E.U./dl (0.2-1.0)
[2018-04-24 14:26] LABS: URINE AMPHETAMINES < 1000 (1000ng/ml); URINE BARBITURATES < 200 (200ng/ml); URINE BENZODIAZEPINES < 200 (200ng/ml); URINE CANNABINOIDS (THC) < 50 (50ng/ml); URINE COCAINE < 300 (300ng/ml); URINE METHADONE < 300 (300ng/ml); URINE OPIATES < 300 (300ng/ml)
[2018-04-24 14:27] LABS: CALCIUM OXALATE CRYSTALS 1+; MUCOUS TRACE; WBC 16-20 wbc/hpf (0-5)
[2018-04-24 14:32] LABS: URINE PHENCYCLIDINE < 25 (25ng/ml)
[2018-04-24 15:56] VITALS: BP 158/70
--- NOTE | 2018-04-24 16:58 | NUR ---
MARCO WELCH a 62 year old F admitted via stretcher from the ADMITTING as a voluntary admission. Arrived on unit at 1658. ALLERGIES: NKA. Vital signs are: 97.6-89-22 134/76. The client signed the following forms with stated understanding: Authorization For The Release of Medical Information, Clothing List, Consent to Voluntary Admission and Hospitalization, Consent and Release Forms/Receipt of Rights, Acknowledgement of Advance Directive Information, Behavioral Health Consent Form, and Informed Consent of Medications. [facility] A search was conducted and hazardous articles were removed. Client was oriented to the unit. ROCIO ROMANO
[2018-04-24 17:16] VITALS: BP 134/76
--- NOTE | 2018-04-24 17:20 | NUR ---
DR DA SILVA ON UNIT TO ASSESS PATIENT.
--- NOTE | 2018-04-24 17:21 | NUR ---
MEDICATION LIST UPDATED AND REVIEWED WITH PATIENT. MEDICATIONS VERIFIED WITH PTS LISTED PHARMACY.
--- NOTE | 2018-04-24 17:24 | NUR ---
CALLED HOSPITALIST CELL NUMBER 1, SPOKE TO , MADE AWARE OF NEW CONSULT AND CURRENT PAIN LEVEL. STATES SOMEONE WILL BE UP TO ASSESS PATIENT.
--- NOTE | 2018-04-24 18:45 | NUR ---
PATIENT ASSISTED OFF UNIT WITH SECURITY AND NURSE FOR CT OF LUMBAR SPINE AND RETURNED BACK TO UNITS. PATIENT TOLERATED WELL.
--- NOTE | 2018-04-24 19:20 | NUR ---
DR. FAIRBANKS NOTIFIED OF WOUNDS ON BILATERAL WRIST.
[2018-04-24 20:00] VITALS: BP 134/67
--- NOTE | 2018-04-24 23:54 | NUR ---
24 HR chart check completed.
--- NOTE | 2018-04-25 00:14 | NUR ---
P-PAIN, ANXIETY, SUICIDAL ATTEMPT PRIOR TO ADMISSION I-1:1 PROVIDED FOR SUPPORT & VENTILATION OF FEELINGS, DISCUSSED ALTERNATE COPING MODES & RELAXATION TECHNIQUES, ADMINISTER HS MEDICATIONS, ACCESS PAIN & MEDICATED WITH PRN NORCO 5/325 MG @ 1957, ADMINISTER PRN ATIVAN 1 MG PO FOR INCREASED ANXIETY @ 2212, PROVIDE PT WITH MODES OF COMFORT TO DECREASE BACK PAIN, ACCESS SUICIDAL FEELINGS, MONITOR SLEEP R-PT VERBAL, ALERT & ORIENTED X 4, DENIES SUICIDAL FEELINGS & FEELS REMORSEFUL, STATED, "IT WAS SO STUPID & I WILL NEVER DO ANYTHING LIKE THAT AGAIN. I AM JUST IN SO MUCH PAIN. I COULDN'T STAND IT". PRN NORCO MINIMALLY EFFECTIVE, PRN ATIVAN EFFECTIVE, PT INDEPENDENT WITH AMBULATION BUT GIVEN STAND BY ASSISTANCE, PT STATED SHE IS MORE COMFORTABLE LAYING ON HER RIGHT SIDE & HAS DONE SO SINCE LYING IN BED. REQUESTED & GIVEN ICE BAG FOR LOWER BACK PAIN, MOOD IS DEPRESSED & ANXIOUS, TEARFUL AT TIMES & RELATES IT IS DUE TO THE DISCOMFORT OF HER BACK PAIN. DENIES ANY PAIN TO BILATERAL WRISTS. STATED THAT SHE THINKS THERE ARE 7 STITCHES IN ONE WRIST & 8 IN THE OTHER. COMPLIANT WITH ALL MEDICATIONS. GIVEN FLU SHOT. REFUSED BEDSIDE GLUCOSE. STATED SHE DOES NOT TAKE INSULIN AT HOME & ONLY TAKES GLUCOPHAGE. VOICED FRUSTRATION REGARDING BACK PAIN & STATED SHE SEEN HER DR THE OTHER DAY BUT DID NOT GET A CHANCE TO GET THE PRESCRIPTION FILLED & THE PAIN HAS EFFECTED HER SLEEP & SHE IS VERY UNCOMFORTABLE ALL THE TIME P-CONTINUE TO MONITOR FOR SUICIDAL FEELINGS, MOOD, ANXIETY & BACK PAIN, ASSIST WITH COMFORT MEASURES TO HELP ALLEVIATE PAIN, MONITOR EFFECTIVENESS OF PRN MEDICATIONS.
--- NOTE | 2018-04-25 05:05 | NUR ---
PT HAS SLEPT QUIETLY THROUGHOUT THE SHIFT PAST 2329. ATIVAN HAS BEEN EFFECTIVE TO HELP PT RELAX.
--- NOTE | 2018-04-25 05:12 | NUR ---
DR FAIRBANKS NOTIFIED THAT PTS HOME MEDICATIONS HAVE NOT BEEN ORDERED YET. SHE STATED, "OK. I WILL TAKE CARE OF IT".
[2018-04-25 05:56] LABS: HEMATOCRIT 41.4 % (37.0-47.0); HEMOGLOBIN 13.3 g/dl (12.0-16.0); MEAN CELL VOLUME 86.3 fl (81.0-99.0); MEAN CORPUSCULAR HGB 27.7 pg (27.0-31.0); MEAN CORPUSCULAR HGB CONC 32.1 g/dl (33.0-37.0); MEAN PLATELET VOLUME 9.4 fl (9.6-12.3); PLATELET COUNT AUTOMATED 273 10*3/uL (130-400); RED CELL DISTRI WIDTH 13.3 % (0-14.5); WHITE BLOOD COUNT 10.1 10*3/uL (4.8-10.8)
[2018-04-25 06:15] LABS: ALBUMIN 3.3 gm/dl (3.1-4.5); CREATININE 1.12 mg/dL (0.55-1.02); TOTAL PROTEIN 7.1 gm/dL (6.4-8.2)
[2018-04-25 06:17] LABS: POTASSIUM 4.2 mmol/L (3.5-5.1)
[2018-04-25 06:23] LABS: THYROID STIM HORMONE (HS) 0.73 uIU/ml (0.358-4.75)
[2018-04-25 06:45] LABS: PLATELET SUFFICIENCY NORMAL (NORMAL); TOTAL CELLS COUNTED 100 #CELLS
--- NOTE | 2018-04-25 06:58 | NUR ---
MEDICATED WITH NORCO 1 TAB AT THIS TIME FOR C/O BACK PAIN. RATED PAIN 8/10
--- NOTE | 2018-04-25 07:45 | NUR ---
ON UNIT TO SEE PT AT THIS TIME. STATES TO CONTINUE Q15 MIN MONITORING, NO NEED FOR LINE OF SIGHT OR 1:1 OBSERVATION IN RELATION TO SUICIDE RISK ASSESSMENTS. PT DENIES SI/HI, INTENT OR PLAN. PT EXPRESSES REMORSE FOR RECENT ATTEMPT AND STATES "NO. I WON'T EVER DO THAT AGAIN."
[2018-04-25 07:56] LABS: VITAMIN D, 25-HYDROXY 32.4 ng/mL (30-100)
--- NOTE | 2018-04-25 08:00 | NUR ---
PHYSICAL THERAPY Nursing screen received. PT orders also received. Thank you. Vannessa Jiménez,PT
[2018-04-25 08:09] VITALS: BP 129/61
--- NOTE | 2018-04-25 09:14 | NUR ---
Spoke with Patient at bedside. Pt. states that she only has about two more weeks of her health insurance and that right now she has no income. She has been off of work since February and unable to work due to Pain. Pt. states that she receives Primary Care at [facility] in [place] and has never seen anyone for Psychiatric Follow Up. Call Placed to Breanne from [employer] Ext [phone] to see if she might be able to assist patient.
--- NOTE | 2018-04-25 09:18 | NUR ---
CALL PLACED TO 'S OFFICE, SPOKE TO ERIKA, MADE AWARE OF CONSULT. STATES SHE WILL PASS IT ALONG TO .
--- NOTE | 2018-04-25 11:06 | NUR ---
Occupational Therapy evaluation completed on 3 with full eval to follow. Precautions include 3N unit precautions,suicide precautions; sliced both wrists w/ bandages in place, 5/10 back pain limiting her ADLs, IADLs, work and sleep.Patient is low complexity level 57638. Recommend OT per POC to address safety in mobility and ADLs and return home with need to seek out word processing specialist and outpatient PT. Thank you for this referral. Yanet Martinez OTR/l
--- NOTE | 2018-04-25 11:18 | NUR ---
PHYSICAL THERAPY PAtient evaluated on 3, full evaluation to follow. Contineu with PT as per plan of care with fall, unit three, recent suicide attempt, low back pain and spinal stensosis precautions. Continue with out patient PT upon d.c as prior. Recommend spinal specialist ortho consult upon d.c. Patient is high complexity via chart review, tests and evaluation:[id number]., Thank you for this referral. Vannessa Jiménez,PT
--- NOTE | 2018-04-25 11:44 | NUR ---
PRN IBUPROFEN 800MG ONE TAB PO GIVEN AT THIS TIME FOR PT C/O BACK PAIN RATED LEVEL 5/10. ZOSTRIX CREAM APPLIED PER 'S ORDER. WILL MONITOR FOR EFFECTIVENESS. PT GIVEN LUNCH IN HER ROOM PER PT IS UNABLE TO SIT FOR LONG D/T BACK PAIN.
--- NOTE | 2018-04-25 11:45 | NUR ---
ON UNIT TO SEE PT AT THIS TIME.
--- NOTE | 2018-04-25 11:53 | NUR ---
Faxed admission clinicals to [facility]. Awaiting response.
--- NOTE | 2018-04-25 12:33 | NUR ---
AND ON UNIT TO SEE PT AT THIS TIME.
--- NOTE | 2018-04-25 12:38 | NUR ---
1:1 AND ASSESSMENT COMPLETED PT ASSESSMENT AND SPENT TIME DISCUSSING COPING STRATEGIES FOR PAIN MANAGEMENT AND SUICIDAL IDEATIONS. PT WAS VERY OPEN WITH THIS DYE PENETRANT TESTING TECHNICIAN AND FELT REMORSE AND EMBARRASSMENT OVER SUICIDE ATTEMPT. PT WAS IN PAIN AND WAS OPEN TO COPING STRATEGIES FOR DEALING WITH PAIN. PT WILL BE ENCOURAGED TO ATTEND AFTERNOON GROUP THERAPY.
--- NOTE | 2018-04-25 12:46 | NUR ---
MARCO WELCH [id number] Please refer to the physician's history and physical for past medical history, comorbid conditions, and allergies. Diagnosis: MAJOR DEPRESSION RECURRENT, SEVERE Tone Score: 18,LOW OR NO RISK WOUND DESCRIPTIONS: Location of the wound: left wrist Type of wound: laceration Thickness: Partial Size: 0.1cm x 4.5cm x <0.1cm Tunneling: none Undermining: none Sinus Tract: none Presence of Exudate: Serosanguineous Amount: Light Color: Red Odor: None Periwound Skin Appearance: Normal Wound edges: approximated with 7 sutures Pain (associated with wound): none at time of assessment How does patient state this happened? pt stated she cut herself with a farm operator knife yesterday because she couldn't take the pain anymore Location of the wound: right wrist Type of wound: laceration Thickness: Partial Size: 0.1cm x 4.5cm x <0.1cm Tunneling: none Undermining: none Sinus Tract: none Presence of Exudate: Serosanguineous Amount: Light Color: Red Odor: None Periwound Skin Appearance: Normal Wound edges: approximated with 8 sutures Pain (associated with wound): none at time of assessment How does patient state this happened? pt stated she cut herself with a farm operator knife yesterday because she couldn't take the pain anymore Surface the patient is resting on: Proform SKIN PREVENTION RECOMMENDATION: 1. Pressure redistribution support surface as appropriate 2. Elevate heels 3. Remove boots/TEDS every shift and reapply 4. Head of bed 30 degrees as tolerated 5. Assess nutrition and hydration 6. Manage moisture 7. Avoid the use of containment devices while in bed 8. Use absorptive products on surfaces limit layers of linens on bed 9. Turn and reposition every 1-2 hours in bed and every 1 hour in chair as tolerated 10. Weight shifts every 15 minutes while up in chair 11. Offloading with pillows or device to keep heels elevated off bed 12. Monitor skin at least every shift 13. Inspect under medical devices twice a day WOUND TREATMENT RECOMMENDATIONS: Suture removal 05/08/18. Cleanse bilateral wrist with nss and apply adaptic then cover with 4x4 then wrap with rolled gauze.
--- NOTE | 2018-04-25 13:21 | NUR ---
P- DEPRESSION, RECENT SUICIDE ATTEMPT, SEVERE BACK PAIN, LIMITED MOBILITY. I- ORIENTATION, MOOD AND BEHAVIOR ASSESSED, ASSESSED PT FOR SI/HI, INTENT OR PLAN. ASSESSED PT FOR S/S INTERNAL STIMULI. ASSESSED PT'S PAIN LEVEL. MEDICATIONS ADMINISTERED PER PHYSICIAN'S ORDERS. PROVIDED PT WITH EDUCATION REGARDING NEW MEDICATIONS ORDERED BY . 1:1 WITH PT, ALLOWED PT TIME TO EXPRESS FEELINGS. ENCOURAGED PT TO ATTEND AND PARTICIPATE IN GROUPS AND ACTIVITIES. R- PT IS ALERT AND ORIENTED X4. MEMORY APPEARS TO BE INTACT. RESPS EASY AND EVEN ON ROOM AIR. PT IS CALM, PLEASANT AND COOPERATIVE. ISOLATIVE TO ROOM, PT STATES SHE IS UNABLE TO SIT UPRIGHT IN CHAIR IT FURTHER EXACERBATES THE SEVERE PAIN IN HER BACK. THEREFORE, PT STAYS IN HER ROOM LAYING ON HER RIGHT SIDE SHE STATES THIS IS THE LEAST PAINFUL POSITION FOR HER. PT DENIES FEELING SUICIDAL AT THIS TIME AND STATES IT WAS A MISTAKE. PT STATES "I'LL NEVER DO IT AGAIN". PT HAS VERBALLY CONTRACTED FOR SAFETY. PT DENIES HOMICIDAL IDEATIONS. PT DENIES HALLUCINATIONS, NO RESPONSE TO INTERNAL STIMULI NOTED. NO PARANOIA/DELUSIONS NOTED. PT CONTINUES TO C/O BACK PAIN. PT REPOSITIONS SELF TO A POSITION OF COMFORT. PT RECEPTIVE TO 1:1 AND MEDICATION TEACHING. PT REPORTS IBUPROFEN HAS HELPED "A BIT". PT STATES SHE LIKES THE ZOSTRIX CREAM. THIS NURSE ASKED PT IF IT WAS HELPING TO EASE THE PAIN, PT STATES "I DON'T KNOW ABOUT THAT, BUT IT TAKES MY MIND OFF OF IT AND THAT'S GOOD." 1:1 GROUP WAS HELD WITH PT BY ACTIVITIES THERAPIST IN HER ROOM TO ALLOW PT TO REMAIN LAYING ON HER RIGHT SIDE FOR COMFORT, PT RECEPTIVE TO THIS GROUP. PT HAS DISPLAYED GOOD APPEIITE WITH ADEQUATE FLUID INTAKE AND IS USING THE BATHROOM INDEPENDENTLY. P- PLAN TO CONTINUE CURRENT TREATMENT. CONTINUE TO MONITOR MOOD AND BEHAVIOR, PROVIDE REDIRECTION, 1:1 AND REORIENTATION NEEDED. CONTINUE TO PROVIDE PRN MEDICATIONS AND NONPHARMALOGICAL MEASURES TO COPE WITH PAIN. ENCOURAGE PT TO ATTEND AND PARTICIPATE IN GROUPS.
--- NOTE | 2018-04-25 14:01 | NUR ---
Dr. Ayala notified of wound care recommendations.
--- NOTE | 2018-04-25 14:18 | NUR ---
[facility] Awaiting response.
--- NOTE | 2018-04-25 14:20 | NUR ---
Treatment Plan meeting with Dr. Villa RN, AT and [employer] Programmer. Plan for discharge next week. Pt. to return home.
--- NOTE | 2018-04-25 14:38 | NUR ---
psychosocial hx completed this date.
--- NOTE | 2018-04-25 14:48 | NUR ---
psycho therapy: met with client at the request of dr ackerman, we talked about the events leading to hospitalization, she reports to me that she feels so bad now that she did that, she denies suicidal ideation and she just wants to get out so she can go to her sisters and get help for her pain. she said she will never try to harm herself again,she called 911 because she was afraid and she regretted this. she is able to talk about future goals and how she thinks that she will take an early senior living because she wants to try to enjoy things,s she said that her sister deals with pain so she knows things to help her. she stated some relief from the pain here with medications. explored with client her many reasons to live, we talked about meditation, relaxation, coping and management. she was receptive to this. i will visit client again tomorrow, she is agreeable.
--- NOTE | 2018-04-25 15:31 | NUR ---
LIAM ESTES PT DID NOT ATTEND AFTERNOON GROUP THERAPY. PT WAS BEING ASSESSED BY SW. PT WILL BE ENCOURAGED TO ATTEND GROUP THERAPY TOMORROW.
--- NOTE | 2018-04-25 15:55 | NUR ---
Nursing screen received and Occupational Therapy evaluation completed. Thank you. Yanet Martinez OTR/l
--- NOTE | 2018-04-25 16:45 | NUR ---
PT AMBULATED TO DINING ROOM FOR DINNER. ATE DINNER WITH PEERS. THEN AMBULATED THE HALLWAY FOR A SHORT WHILE. PT STATES SHE IS FEELING A LITTLE BETTER AND THINKS THE NEW MEDICINES AND ZOSTRIX CREAM ARE HELPING EASE HER PAIN.
[2018-04-25 19:57] VITALS: BP 126/58
--- NOTE | 2018-04-25 23:46 | NUR ---
24 HR chart check completed.
--- NOTE | 2018-04-26 00:43 | NUR ---
P-DEPRESSION, RECENT SUICIDE ATTEMPT, CHRONIC BACK PAIN A-PROVIDE 1:1 FOR SUPPORT & ENCOURAGE VENTILATION OF FEELINGS. ASSESS SUICIDE FEELINGS & MOOD. DISCUSS ALTERNATE COPING MODES. ADMINISTER MEDICATIONS & PROVIDE EDUCATION DISCUSSING PURPOSE, DOSAGE, FREQUENCY & SIDE EFFECTS. MONITOR SLEEP. MEDICATED WITH ATIVAN 1 MG PO @ 2135 FOR C/O FEELINGS ANXIOUS. MONITOR BACK PAIN & PROVIDE OPTIONS TO RELIEVE DISCOMFORT. R-PT VERBAL. STATED THAT SHE IS FEELING A LITTLE BETTER BUT IS STILL DEPRESSED & DISAPPOINTED IN HERSELF & ASHAMED OF WHAT SHE DID. DENIES SUICIDAL FEELINGS. BRIEF TEARFUL EPISODES. STATED THAT SHE MAY POSSIBLY GO STAY WITH HER SISTER A WHILE IN [employer]. ALSO STATED THAT SHE FEELS SHE CAN NO LONGER WORK AT THE [employer]. DID VOICE POSITIVE FUTURE PLANS. ATIVAN EFFECTIVE & PT HAS RESTED QUIETLY. PAIN RELIEF HAS BEEN OBTAINED WITH ZOXTRIX CREAM P-CONTINUE TO ASSESS FOR SUICIDAL FEELINGS & MONITOR PAIN & SLEEP
--- NOTE | 2018-04-26 05:05 | NUR ---
ATIVAN HAS BEEN EFFECTIVE & PT SLEPT PAST 0 WITH 1 BRIEF AWAKENING TO GO TO THE BATHROOM INDEPENDENTLY. PT DID C/O BACK PAIN & RATED PAIN 11/30. REQUESTED & MEDICATED WITH NORCO 1 TAB @ 6182.
--- NOTE | 2018-04-26 06:25 | NUR ---
PT AWAKENED FOR AM MEDS AT THIS TIME. STATED NORCO EFFECTIVE FOR RELIEF OF PAIN.
--- NOTE | 2018-04-26 07:15 | NUR ---
OT NOTE Pt was seen this A.M. 1:1 for 15 minute OT session. Upon arrival pt was supine in bed, pt identified by name and . Pt had reports of 5/10 back pain. Educated pt on log rolling and pt transferred supine to sit EOB with SBA with good carry over of log roll technique. While sitting EOB pt donned socks with SBA while using personal adaptive techniques. Pt was left supine in bed under U staff supervision. Continue with POC as able. SERGIO Tierney/Saba
--- NOTE | 2018-04-26 07:40 | NUR ---
PHYSICAL THERAPY Patient seen this am 1:1 for therapy visit and was supine in bed upon therapist arrival. Patient was just awakening this morning and transfered supine to sit EOB, demonstrating "log roll" technique with no c/o pain. Patient then transfers sit to stand, CGA and ambulates SBA, 125'x 1, demonstrating a slow murtaza with decreased stride. Patient returned to activity room chair at table awaiting breakfast under [facility] staff Supervision. Will continue per POC as tolerated, total treatment time 14 minutes. Remington Lee, FOUNDRY TECHNICIAN
[2018-04-26 07:45] VITALS: BP 140/87
--- NOTE | 2018-04-26 08:15 | NUR ---
Treatment Plan meeting with Dr. Villa RN, AT and Magisterial District Judge. Plan for discharge Sunday. Pt. to return home with Daughter and Son in Law.
--- NOTE | 2018-04-26 11:10 | NUR ---
IP gale per Melany at [facility]. Ref # [id number]. LCD 04/29, NRD 04/30. Fax [facility] to [phone].
--- NOTE | 2018-04-26 11:20 | NUR ---
ON UNIT TO ASSESS PT. ADVISED THAT DR. DA SILVA WAS NOTIFIED YESTERDAY BY WOUND CARE FOR ORDERS AND NO ORDERS WERE PUT IN. PER CONTACT FOR ORDERS, SPOKE WITH RE:ORDERS PER HE WILL PUT THE ORDERS IN.
--- NOTE | 2018-04-26 11:51 | NUR ---
AM GROUP THERAPY PT ATTENDED AND PARTICIPATED IN ALL GROUP ACTIVITIES. PT OPENLY DISCUSSED COPING STRATEGIES FOR MANAGEING CHRONIC PAIN. PT WAS GIVEN A WORKBOOK TO USE AND TAKE UPON DISCHARGE. PT EXPRESSED NO SUICIDAL IDEATIONS DURING GROUP. PT WILL CONTINUE TO ATTEND AND PARTICIPATE IN GROUP ACITIVITES.
--- NOTE | 2018-04-26 12:29 | NUR ---
P: DEPRESSED MOOD, RECENT SUICIDE ATTEMPT, CHRONIC BACK PAIN I: 1:1 PROVIDED FOR PT TO VOICE FEELINGS, ENCOURAGED PT TO VOICE SUICIDAL THOUGHTS TO STAFF, VERBALLY CONTRACTED FOR SAFETY IF SUCH THOUGHTS ARISE, PT MEDICATED WITH PRN PAIN MEDICATIONS PER ORDERS AND ROUTINE ZOSTRIX CREAM R: PT DENIES SUICIDAL THOUGHTS, PT STATED "IT WON'T EVER HAPPEN AGAIN, I WAS JUST IN SO MUCH PAIN, I COULDN'T TAKE IT ANYMORE." P: PLAN IS TO PROVIDE 1:1 FOR PT TO VOICE FEELINGS, ENCOURAGE PT TO VOICE SUCIDAL THOUGHTS TO STAFF AND VERBALLY CONTRACT FOR SAFETY IF SUCH THOUGHTS ARISE, PROVIDE MED EDUCATION AND ENCOURAGE MED COMPLIANCE, MONITOR PT BEHAVIORS ON Q15 MIN SAFETY CHECKS. PT ALERT TO PERSON, PLACE, TIME AND SITUATION. PT MED COMPLIANT WITHOUT DIFFICULTY, MED EDUCATION PROVIDED. PT CALM, INTERACTIVE WITH STAFF AND PEERS, CONSUMED BOTH BREAKFAST AND LUCNH IN DINING ROOM TODAY. PT MOOD IS DEPRESSED, DENIES SUICIDAL THOUGHTS AT THIS TIME, VERBALLY CONTRACTED FOR SAFETY IF SUCH THOUGHTS ARISE. PT VOICES EMBARASSMENT AND SHAME AT PREVIOUS SUICIDE ATTEMPT. NO HALLUCINATIONS OR DELUSIONS NOTED. PT AMBUALTORY THROUGHTOUT UNIT, GAIT STEADY. PT CONTINENT OF BOWEL AND BLADDER.
--- NOTE | 2018-04-26 15:05 | NUR ---
EDDIE FROM 'S OFFICE CALLED TO INQUIRE ABOUT PT, UPDATE PROVIDED. PER EDDIE EDWARDS RECOMMENDED THAT THE PT HAVE AN MRI AND WAS WONDERING WHO WOULD ORDER THE MRI, ADVISED THAT DR. HERNANDEZ WOULD HAVE TO ORDER IT.
--- NOTE | 2018-04-26 15:37 | NUR ---
PM GROUP THERAPY PT ATTENDED AND PARTICIPATED IN ALL GROUP ACTIVITIES. PT IS VERY OPEN TO TRYING NEW ACTIVITIES AND SUGGESTIONS FOR COPING STRATEGIES TO DEAL WITH PAIN AND DEPRESSION. PT EXPRESSED NO SUICIDAL IDEATIONS DURING GROUP NOR COMPLAINED OF ANY PAIN. PT WILL CONTINUE TO ATTEND AND PARTICIPATE IN GROUP THERAPY.
[2018-04-26 19:55] VITALS: BP 147/67
--- NOTE | 2018-04-26 21:08 | NUR ---
24 HR chart check completed.
--- NOTE | 2018-04-26 22:22 | NUR ---
P-DEPRESSION, RECENT SUICIDE ATTEMPT, CHRONIC BACK PAIN I-PROVIDE 1:1 FOR SUPPORT & ENCOURAGE VENTILATION OF FEELINGS. ASSESS SUICDE FEELINGS & MOOD. DISCUSS ALTERNATE COMPING MODES, ADMINISTER MEDS & PROVIDE EDUCATION. MONITOR SLEEP MONITOR BACK PAIN & PROVIDE OPTIONS TO RELIEVE DISCOMFORT. MEDICATED WITH MOTRIN 800 MG PO 2037 FOR BACK PAIN. RATED PAIN 5/10. MEDICATED WITH ATIVAN 1 MG PO FOR C/O ANXIETY @ 2119. R-PT VERBAL. STATED THAT SHE IS IN A BETTER MOOD TODAY & FEELING BETTER. MILDLY DEPRESSED WITH A BRIGHTER AFFECT. DENIES SUICIDAL FEELINGS. DENIES ANY DISCOMFORT TO BILATERAL WRISTS. RECEPTIVE TO DISCUSSING ALTERNATE COPING MODES & POSITIVE THINKING. STILL VOICES A LOT OF REMORSE FOR HER SUICIDE ATTEMPT OF CUTTING HER WRISTS. STATED RELIEF OF PAIN WITH PRN MOTRIN. ATIVAN EFFECTIVE TO RELIVE ANXIETY. P-CONTINUE TO ASSESS FOR SUICIDAL FEELINGS & MONITOR SLEEP & PAIN
--- NOTE | 2018-04-27 05:40 | NUR ---
ATIVAN HAS BEEN EFFECTIVE & PT HAS SLEPT QUIETLY THROUGHOUT THE SHIFT PAST 2314.
--- NOTE | 2018-04-27 08:01 | NUR ---
PT C/O BACK PAIN 11/30, PT TEARFUL STATING "IT WASN'T THIS BAD YESTERDAY." PT GIVEN PILLOW TO PUT BEHIND BACK WHILE SITTING IN CHAIR, ENCOURAGED TO REPOSITION FREQUENTLY WHILE SITTING. PT MEDICATED WITH PRN NORCO PER ORDERS. WILL CONTINUE TO MONITOR.
[2018-04-27 08:13] VITALS: BP 156/73
--- NOTE | 2018-04-27 10:30 | NUR ---
TANIA EFFECTIVE PT STATED "THE PAIN IS GETTING BETTER"
--- NOTE | 2018-04-27 11:15 | NUR ---
ON UNIT TO ASSESS PT.
--- NOTE | 2018-04-27 11:31 | NUR ---
AM GROUP/EXERCISE/ART/STORY PT ENCOURAGED TO ATTEND AND PARTICIPATE GROUP BUT PT CHOSE TO STAY IN ROOM. PT WILL CONTINUE TO BE ENCOURAGED TO ATTEND AND PARTICIPATE IN FUTURE GROUP SESSIONS.
--- NOTE | 2018-04-27 14:40 | NUR ---
P: DEPRESSED MOOD, CHRONIC BACK PAIN, ISOLATIVE TO ROOM I: PROVIDE MED EDUCATION, ENCOURAGE PT TO REPOSITION FREQUENTLY, ENCOURAGE PT TO PARTICIPATE IN GROUPS AND ACTIVITIES, PROVIDE EMOTIONAL SUPPORT AND 1:1 FOR PT TO VOICE FEELINGS,MEDICATE WITH SCHEDULED ZOSTRIX CREAM AND PRN PO NORCO R: PT CHOSE TO STAY IN HER ROOM RATHER THAN PARTICIPATE IN GROUP, PT STATED "I'M JUST FEELING A LITTLE DOWN, I FELT MUCH BETTER YESTERDAY, THE PAIN IS WORE TODAY." P: CONTINUE TO ENCOURAGE PARTICIPATION IN GROUPS/ACTIVITIES, MONITOR PT BEHAVIORS ON Q15 MIN SAFETY CHECKS, ENCOURAGE MED COMPLIANCE, PROVIDE EMOTIONAL SUPPORT AND 1:1 FOR PT TO VOICE FEELINGS. PT ALERT TO PERSON, PLACE, TIME AND SITUATION. PT MED COMPLIANT WITHOUT DIFFICULTY, MED EDUCATION PROVIDED. PT CALM, MOOD IS DEPRESSED. PT ISOALTIVE TO ROOM THROUGHOUT THE SHIFT, COMING OUT FOR MEALS BUT REFUSING GROUP. NO HALLUCINATIONS OR DELUSIONS NOTED. PT DENIES ANY HOMICIDAL/SUICIDAL THOUGHTS AT THIS TIME, VERBALLY CONTRACTED FOR SAFETY IF SUCH THOUGHTS ARISES. PT VOICES REGRET AND EMBARASSMENT RE: PREVIOUS SUICIDE ATTEMPT. PT AMBULATORY THROUGHTOUT UNIT, GAIT STEADY. PT CONTINENT OF BOWEL AND BLADDER. SUTURES REMAIN INTACT TO BILATERAL WRISTS, NO BLEEDING, REDNESS OR EDEMA NOTED. PLAN IS TO MONITOR PT BEHAVIORS ON Q15 MIN SAFETY CHECKS, ENCOURAGE MED COMPLIANCE AND PROVIDE MED EDUCATION, ENCOURAGE PT TO VOICE SUICIDAL THOUGHTS AND VERBALLY CONTRACT FOR SAFETY.
--- NOTE | 2018-04-27 18:06 | NUR ---
PT TEARFUL, C/O BACK PAIN, 12/31. PT ENCOURAGED TO REPOSITION IN BED, PRCATICE DEEP BREATHING. PT MEDICATED WITH IBURPROFEN 800MG PO PRN PER ORDERS. PT LAYING IN BED AT THIS TIME WITH EYES CLOSED AND LIGHTS OFF.
[2018-04-27 20:00] VITALS: BP 142/63
--- NOTE | 2018-04-27 23:15 | NUR ---
P-DEPRESSED MOOD, CHRONIC BACK PAIN, ISOLATIVE TO ROOM. I- PROVIDE MEDICATION EDUCATION, ENCOURAGE PT TO REPOSITION FREQUENTLY, PROVIDE EMOTIONAL SUPPORT AND 1:1 FOR PATIENT TO VOICE FEELINGS, MEDICATE WITH SCHEDULED ZOTRIX CREAM AND PRN PO NORCO NEEDED. MONITOR EFFEECTIVENESS OF PRN IBRUPROFEN GIVEN ON PREVIOUS SHIFT. R-PT IN ROOM AND BED SINCE BEGINNING OF SHIFT RESTING WITH EYES CLOSED. MEDICATION COMPLIANT WITHOUT DIFFICULTY AFTER REVIEW. NO PHYSICAL COMPLAINTS VOICED. PRN IBRUPROFEN EFFECTIVE AT THIS TIME. MOOD REMAINS DEPRESSED, VOICES NO SUICIDAL IDEATIONS, CONTRACTED FOR SAFETY. PT MINIMALLY RECEPTIVE TO 1:1, PT STATED "IM OKAY THANKS, IM JUST WANTING TO GO TO BED, IM TIRED". P- MONITOR BEHAVIORS ON Q 15 MIN SAFETY CHECKS, ENCOURAGE MEDICATION COMPLIANCE, PROVIDE EMOTIONAL SUPPORT AND 1:1 FOR PT TO VOICE FEELINGS.
--- NOTE | 2018-04-28 03:26 | NUR ---
PATIENT RECIEVED PRN MOTRIN PO 800MG REQUESTED AT THIS TIME FOR C/O "BACK PAIN" WITH A RATING OF 5/10. NO OTHER PHYSICAL COMPLAINTS NOTED. PATIENT ALSO REPOSTIONED FOR COMFORT. PATIENT CURRENTLY SITTING UP IN BED READING AT THIS TIME.
--- NOTE | 2018-04-28 03:57 | NUR ---
24 HOUR CHART CHECK COMPLETED.
--- NOTE | 2018-04-28 06:14 | NUR ---
PATIENT OBSERVED ON Q 15 MIN CHECKS TO HAVE SLEPT APPROX 9 HOURS WITH X1 AWAKENING TO SIT UP AND READ IN BED. NO OTHER COMPLAINTS OF PAIN NOTED. PRN MOTRIN GIVEN AT 0324 EFFECTIVE AT THIS TIME. PATIENT CURRENTLY LAYING DOWN WITH EYES CLOSED. RESPIRATIONS EASY AND REGULAR, NO SIGNS OR SYMPTOMS OF DISTRESS NOTED.
[2018-04-28 08:03] VITALS: BP 152/83
--- NOTE | 2018-04-28 10:54 | NUR ---
ON UNIT TO ASSESS PT.
--- NOTE | 2018-04-28 15:14 | NUR ---
P:DEPRESSED MOOD AND ISOLATIVE TO ROOM I: ENCOURAGE PT TO PARTICIPATE IN GROUP/ACTIVITIES, PROVIDE EMOTIONAL SUPPORT AND 1:1 FOR PT TO VOICE FEELINGS, ENCOURAGE MED COMPLIANCE AND 1:1 FOR PT TO VOICE FEELINGS, MONITOR PT BEHAVIORS ON Q15 MIN SAFETY CHECKS R: PT REFUSED TO PARTICIPATE IN GROUP/ACTIVITIES CHOOSING TO STAY IN HER ROOM P: CONTINUE TO ENCOURAGE PT TO PARTICIPATE IN GROUPS/ACTIVITIES, PROVIDE EMOTIONAL SUPPPORT AND 1:1 FOR PT TO VOICE FEELINGS, MONITOR PT BEHAVIORS ON Q15 MIN SAEFTY CHECKS PT ALERT TO PERSON, PLACE, TIME AND SITUATION. PT MED COMPLIANT WITHOUT DIFFICULTY, MED EDUCATION PROVIDED. PT CALM, MOOD IS DEPRESSED. PT ISOLATIVE TO ROOM. PT GOAL DIRECTED TOWARDS GETTING HER CHRONIC BACK PAIN UNDER CONTROL. NO HALLUCINATIONS OR DELUSIONS NOTED. PT DENIES ANY SUICIDAL THOUGHTS, VERBALLY CONTRACTED FOR SAFTEY IF SUCH THOUGHTS ARISE. PT AMBULATORY THROUGHTOUT UNIT, GAIT STEADY. PT CONTINENT OF BOWEL AND BLADDER.
--- NOTE | 2018-04-28 16:00 | NUR ---
PM GROUP/MOVIE/ART PT CHOSE NOT TO ATTEND GROUP BUT LAID IN BED. THIS STAFF ENCOURAGED PT TO ATTEND BUT PT STATES "I REALLY JUST WANT TO STAY IN BED AND TAKE A NAP" THIS STAFF REMINDS PT THAT SHE HAS A PACKET SHE CAN WORK ON IN GROUP IF SHE CHANGES HER MIND. PT WILL CONTINUE TO BE ENCOURAGED TO ATTEND AND PARTICIPATE IN FUTURE GROUP SESSIONS.
--- NOTE | 2018-04-28 16:35 | NUR ---
PT WALKING TOWARD THE DINING ROOM CRYING, THIS NURSE APPROACHED PT, EMOTIONAL SUPPORT AND 1:1 PROVIDED FOR PT TO VOICE FEELINGS, PT STATED" IT'S JUST SO HARD, I'M USED TO BE THE ONE TO TAKE CAR OF EVERYONE AND USED TO TAKING CARE OF MYSELF." THIS NURSE ADVISED PT THAT SHE IS TAKING CARE OF HERSELF BY GETTING THE HELP SHE NEEDS WHILE IN THE HOSPITAL. PT RECEPTIVE TO EDUCATION, STATED "I KNOW I'M NOT READY TO GO HOME YET UNTIL I GET THE PAIN AND EVERYTHING UNDER CONTROL. CONTINUE TO PROVIDE EMOTIONAL SUPPORT AND 1:1 NEEDED, ENCOURAGE PT TO PARTICIPATE IN GROUPS/ACTIVITIES, MONITOR PT BEHAVIORS ON Q15 MIN SAFETY CHECKS.
[2018-04-28 19:48] VITALS: BP 133/66
--- NOTE | 2018-04-28 22:50 | NUR ---
P- DEPRESSED MOOD, CHRONIC BACK PAIN, ISOLATIVE TO ROOM. I- PROVIDE MEDICATION EDUCATION, ENCOURAGE PATIENT TO REPOSITION FREQUENTLY, PROVIDE EMOTIONAL SUPPORT AND 1:1 FOR PATIENT TO VOICE FEELINGS. MEDICATE WITH SCHEDULED ZOTRIX CREAM AND PRN MOTRIN NEEDED. R- PT CAME DOWN TO DINING ROOM FOR HS SNACK AND WATCHED TV WITH PEERS, BRIGHTER AFFECT NOTED, STATED "I DONT FEEL DEPRESSED RIGHT NOW, DOING A LITTLE BIT BETTER". DENIES SUICIDAL IDEATIONS, CONTRACTED FOR SAFETY. COMPLIANT WITH HS MEDICATIONS. NO PHYSICAL COMPLAINTS VOICED. P-MONITOR BEHAVIORS ON Q 15 MIN SAFETY CHECKS, ENCOURAGE MEDICATION COMPLIANCE, PROVIDE EMOTIONAL SUPPORT AND 1:1 FOR PT TO VOICE FEELINGS.
--- NOTE | 2018-04-28 23:59 | NUR ---
PATIENT RECIEVED PRN MOTRIN 800MG PO REQUESTED FOR C/O "BACK PAIN" WITH A RATING OF 4/10. NO OTHER COMPLAINTS NOTED.
--- NOTE | 2018-04-29 04:43 | NUR ---
24 HOUR CHART CHECK COMPLETED.
--- NOTE | 2018-04-29 06:05 | NUR ---
PATIENT OBSERVED ON Q 15 MIN CHECKS TO HAVE SLEPT APPROX 6 HOURS WITH NO AWAKENINGS. NO COMPLAINTS OF PAIN NOTED, PRN MOTRIN GIVEN AT 2356 EFFECTIVE. NO SIGNS OR SYMPTOMS OF DISTRESS NOTED.
--- NOTE | 2018-04-29 06:58 | NUR ---
Patient is requesting to follow up in the wound care center upon discharge for suture removal on 05/08/18.
--- NOTE | 2018-04-29 07:06 | NUR ---
OT NOTE Pt was seen this A.M. 1:1 for 12 minute OT session. Upon arrival to unit verified with nursing that this therapist had two pieces of adaptive equipment which she looked at and stated it was okay to proceed. Upon arrival pt was supine in bed reading her book, pt identified by name and . Pt had reports of 3/10 mid/low back pain. Pt transferred supine to sit EOB with good carry over of the log roll technique educated on in previous session. Educated pt on use of sample stitcher and sock aid and pt declined stating and demonstrating that she can hue her socks with supervision while sitting EOB with no reports of increased pain. Pt was left supine in bed with [facility] staff notified and [facility] staff checking equipment before leaving the unit. All supplies were taken back outside the unit. Continue with POC as able. SERGIO Tierney/Saba
[2018-04-29 07:19] VITALS: BP 127/65
--- NOTE | 2018-04-29 07:35 | NUR ---
PHYSICAL THERAPY Patient seen this am 1:1 for therapy visit and was supine in bed following OT assistant head cashier visit. Patient reports decreased c/o of LBP, /, transfering supine to sit EOB using good log roll technique with SBA. Patient completes sit to stand SBA and ambulates 150'x 1, SBA ad stephanie in room / hallway, demonstrating good murtaza during staight line gait, however a little unsteady with turns / backward walking. Patient returned to activity room chair at table awaiting breakfast and remained under [facility] staff Supervision. Will continue per POC as tolerated, total treatment time 14 minutes. Remington Lee, TELEPHONE SALES AGENT
--- NOTE | 2018-04-29 08:10 | NUR ---
Treatment Plan meeting with Dr. Villa RN, AT and pad machine offbearer. Plan for discharge Sunday. Pt. to return home with Daughter and Son In Law.
--- NOTE | 2018-04-29 08:31 | NUR ---
Follow up appointment made for May 08, 2018 at 1:00pm for suture removal of bilateral wrists with Mariana FISCHER.
--- NOTE | 2018-04-29 08:45 | NUR ---
RECIEVED CALL FROM WOUND CARE NURSE REGARDING PT'S SCHEDULED FOLLOW UP FOR 05/08/18 AT 1PM WITH MELISSA CRAWFORD IN THE WOUND CARE CENTER FOR SUTURE REMOVAL. THIS INFORMATION WAS RELAYED TO METAL MACHINE OPERATOR.
--- NOTE | 2018-04-29 10:02 | NUR ---
PRN MOTRIN 800MG ONE TAB PO GIVEN AT THIS TIME PER PT REQUEST FOR C/O BACK PAIN RATED LEVEL 4/10. WILL MONITOR FOR EFFECTIVENESS. ZOSTRIX CREAM ALSO APPLIED WITH ROUTINE MEDS.
--- NOTE | 2018-04-29 11:10 | NUR ---
ON UNIT TO SEE PT AT THIS TIME, UPDATE GIVEN.
--- NOTE | 2018-04-29 11:58 | NUR ---
Call to Dr. Fulton Office Who reccomends that patient follow with [facility]. Refferal to [facility] [phone] Fax.
--- NOTE | 2018-04-29 12:29 | NUR ---
ON UNIT TO SEE PT AT THIS TIME.
--- NOTE | 2018-04-29 12:57 | NUR ---
P- DEPRESSED MOOD, ISOLATIVE TO ROOM, BACK PAIN. I- ORIENTATION, MOOD AND BEHAVIOR ASSESSED. ASSESSED PT FOR SI/HI, INTENT OR PLAN. ASSESSED PT FOR EVIDENCE OF INTERNAL STIMULI. MEDICATIONS ADMINISTERED PER PHYSICIAN'S ORDERS. 1:1 WITH PT, ALLOWED PT TIME TO EXPRESS FEELINGS AND DISCUSSED PLANS FOR DISCHARGE AND FOLLOW UP. ENCOURAGED PT TO ATTEND AND PARTICIPATE IN [facility] GROUPS AND ACTIVITIES. R- PT IS ALERT AND ORIENTED X4. MEMORY INTACT. RESPS EASY AND EVEN ON ROOM AIR. MOOD APPEARS DEPRESSED ALTHOUGH PT DENIES FEELING SAD OR DEPRESSED WHEN QUESTIONED. AFFECT IS BLUNTED. SPEECH IS WNL AND COHERENT, ABLE TO MAKE NEEDS KNOWN WITHOUT DIFFICULTY. PT DENIES SI/HI, INTENT OR PLAN. VERBALLY CONTRACTED FOR SAFETY. PT DENIES HALLUCINATIONS, NO RESPONSE TO INTERNAL STIMULI NOTED. PT REPORTS SHE IS FEELING "A LITTLE BETTER DAY BY DAY" AND STATES SHE "REALLY WANTS TO STAY HERE UNTIL HER PAIN IS UNDER CONTROL". PT RECEPTIVE TO 1:1 THIS RN, DISCUSSED THE PROGRESS PT HAS MADE FROM ADMISSION UNTIL NOW WITH HER PAIN CURRENTLY BEING RATED A 4 IN CONTRAST TO A 10 UPON ADMISSION. PT VERBALIZED AGREEMENT THAT THERE HAS BEEN IMPROVEMENT. PER THE REQUEST OF THIS NURSE EDUCATED PT THAT THE EFFECTIVENESS OF THE NEW MEDICATIONS (CYMBALTA AND NEURONTIN) WILL CONTINUE TO BUILD OVER THE COMING WEEKS SHE TAKES THEM CONSISTENTLY AFTER DISCHARGE. PT VERBALIZED UNDERSTANDING OF THIS AND AGREEMENT WITH DISCHARGE BEING SCHEDULED FOR SUNDAY. PT ALSO HAD 1:1 SESSION WITH ACTIVITES THERAPIST IN HER ROOM TO ALLOW HER TO REMAIN ON HER RIGHT SIDE IN A POSITION OF COMFORT. R- PLAN TO CONTINUE CURRENT TREATMENT, CONTINUE TO MONITOR MOOD AND BEHAVIOR, ASSESS FOR SI, INTENT OR PLAN AND CONTINUE TO REINFORCE MEDICATION TEACHING WELL ENCOURAGE PARTICIPATION IN [facility] GROUPS AND ACTIVITIES.
--- NOTE | 2018-04-29 13:07 | NUR ---
AM THERAPY/ 1:1 1:1 VERY PRODUCTIVE WITH PT. DISCUSSED COPING WITH THE POSSIBILITY THAT PAIN MAY BE BODY TEAM MEMBER. PT SOLUTION TO "UNBEARABLE PAIN" WAS A SUICIDE ATTEMPT. PT QUESTIONED TO SOLUTION SEEKING IF PAIN ESCALATES AGAIN, PT RESPONDED, "I DON'T KNOW WHAT I WILL DO?" PT WAS REASSURED THAT SUICIDE WAS NOT A VIABLE OPTION. PT WAS PRESENTED WITH MANY COPING OPTIONS SUCH "CHRONIC PAIN" WORKBOOK AND RESOURCES, DEEP BREATHING AND MEDITATION, WALKING AND EXERCISING WELL SEEKING OTHERS IF THOUGHTS OF SUICIDE OCCUR AGAIN. PT AGREED AND STATED, "I'M WILLING TO TRY ANYTHING TO NOT HAVE THIS PAIN" PT WAS PRESENTED WITH THE REALITY THAT SOMETIMES AND IN SOME CASES, PAIN CANNOT BE EXPLAINED MEDICALLY AND PT MAY NEED TO FIND OTHER SOLUTIONS THAT CAN WORK. PT AGREED.
--- NOTE | 2018-04-29 16:19 | NUR ---
PM GROUP/MUSIC/ART PT ATTENDED AND PARTICIPATED IN GROUP. PT PREVIOSLY ISOLATIVE BUT DURING GROUP SAT WITH PEERS AND PARTICIPATED IN PAINTING. PT TALKED WITH PEERS AND THIS STAFF. PT DID NOT EXPRESS PAIN OR SUICIDAL IDEATIONS AT THIS TIME. PT WILL CONTINUE TO BE ENCOURAGED TO ATTEND AND PARTICIPATE IN FUTUR EGROUP SESSIONS.
--- NOTE | 2018-04-29 16:56 | NUR ---
Met with pt and reviewed thoughts during suicide attempt and seems there was an element of impulsivity utilized as pt mentioned the knives were on the counter in a canister so she just grabbed one as it was not planned. Stated she felt no pain when cutting wrists but still had back pain. Discussed protective factors and safety planning and obtained consent to collaborate with her sisters Norah and Charlene and her daughter Clive for safety planning. Admits to some previous depression but never suicidial ideation/gesture/attempt. Open to counseling upon discharge. Reviewed a variety of coping skills and discussed warning signs including pt stopping eating for days prior to attempt. Pt indicated the knives are locked up now at her home. Denied any firearms in the home. Discussed relapse prevention with suicidality. Pt was cooperative but made little eye contact. Stated back pain was down to a 2 today but was a 3 earlier but cannot identify anything that makes it better or worse. Reviewed National Suicide Prevention Lifeline number and support. Pt will brainstorm some more information for finalizing safety plan tomorrow. Pt appeared with a flat affect but denied current SI/HI. Collaborated with classroom coordinator and development planner. MRI scheduled for tomorrow and pt indicated she wanted to have an answer from MRI and discussed coping with the possibility that they may get no answer from MRI.
--- NOTE | 2018-04-29 18:40 | NUR ---
SHIFT CHART CHECK COMPLETED.
[2018-04-29 19:54] VITALS: BP 139/65
--- NOTE | 2018-04-29 21:11 | NUR ---
P-DEPRESSED MOOD, CHRONIC BACK PAIN, ISOLATIVE TO ROOM. I- PROVIDE MEDICATION EDUCATION, ENCOURAGE PATIENT TO REPOSITION FREQUENTLY, PROVIDE EMOTIONAL SUPPORT AND 1:1 FOR PATIENT TO VOICE FEELINGS. MEDICATE WITH SCHEDULED ZOTRIX CRAM AND PRN MOTRIN NEEDED. R- PATIENT RECEPTIVE TO 1:1 WITH THIS NURSE, PATIENT STATED SHE IS "HAVING A BETTER DAY TODAY" AND ALSO SPOKE TO THIS NURSE ABOUT THE CURRENT BOOK SHE IS READING. BRIGHTER AFFECT NOTED THIS SHIFT. DENIES SUICIDAL IDEATIONS, CONTRACTED FOR SAFETY. MEDICATION COMPLIANT AFTER REVIEW WITHOUT DIFFICULTY. NO COMPLAINTS OF PAIN NOTED AT THIS TIME. P- MONITOR BEHAVIORS ON Q 15 MIN CHECKS , ENCOURAGE MEDICATION COMPLIANCE, PROVIDE EMOTIONAL SUPPORT AND 1:1 FOR PATIENT TO VOICE FEELINGS. MONITOR PAIN LEVELS.
--- NOTE | 2018-04-29 21:47 | NUR ---
PATIENT RECIEVED PRN MOTRIN 800MG REQUESTED FOR C/O "BACK PAIN" WITH A RATING OF 3/10. PATIENT REPOSITIONED FOR COMFORT. NO OTHER PHYSICAL COMPLAINTS NOTED.
--- NOTE | 2018-04-29 22:59 | NUR ---
24 HOUR CHART CHECK COMPLETED.
--- NOTE | 2018-04-30 05:31 | NUR ---
PATIENT OBSERVED ON Q 15 MIN CHECKS TO HAVE SLEPT APPROX 7 HOURS WITH NO AWAKENINGS. NO COMPLAINTS OF PAIN NOTED. PRN MOTRIN GIVEN AT 2147 EFFECTIVE AT THIS TIME. NO SIGNS OR SYMPTOMS OF DISTRESS NOTED.
[2018-04-30 07:38] VITALS: BP 153/81
--- NOTE | 2018-04-30 07:45 | NUR ---
PHYSICAL THERAPY Patient seen this am for therapy visit and was sitting in activity room chair at table upon therapist arrival. OT technician assistant was present for observation only during all treatment time as patient reports no new c/o's at this time. Patient was very pleasant this morning with all transfers Supervision, ambulating SBA, 150'x 2, demonstrating no LOB and good murtaza. Patient tolerated single leg stance L side 4 seconds and R side 2 seconds prior to LOB and returned to chair in activity room following treatemnt. Patient remained under [facility] staff Supervision and will continue per POC as tolerated. Total treatment time 17 minutes. Remington Lee, AIRCRAFT RESTORER
--- NOTE | 2018-04-30 07:55 | NUR ---
OT NOTE Pt was seen this A.M. 1:1 for 10 minute OT session with PHOTOGRAPHIC TECHNICIAN Remington Lee present for observation only. Upon arrival pt was sitting upright at the dining room table, pt identified by name and and had reports of 2/10 mid/low back pain. While sitting at table pt completed LB dressing task consisting of donning socks and shoes. Pt used personal adaptive technique of bringing one leg over the other knee. Pt was able to complete task with distant supervision and with no reports of increased pain. Pt was left sitting upright at dining room table under [facility] staff supervision. Continue with POC as able. SERGIO Tierney/Saba
--- NOTE | 2018-04-30 08:30 | NUR ---
Treatment Plan meeting with Dr. Villa, RN, AT, and [employer] Operator. Plan for discharge Sunday. Pt. to return home with daughter and Son in Law.
--- NOTE | 2018-04-30 08:55 | NUR ---
Called pts daughter-Clive and scheduled a safety planning meeting for today at 330pm via phone.
--- NOTE | 2018-04-30 10:05 | NUR ---
PT OFF THE UNIT FOR MRI WITH TRANSPORT AND ALYXI.
--- NOTE | 2018-04-30 10:51 | NUR ---
PT RETURNED FROM MRI.
--- NOTE | 2018-04-30 12:02 | NUR ---
PERSONAL DAILY GOAL PT PDG, "TO CONTINUE TO LEARN TO COPE WITH THE PAIN"
--- NOTE | 2018-04-30 12:03 | NUR ---
AM GROUP THERAPY PT ONLY ATTENDED THE LAST FEW MINUTES OF MORNING GROUP THERAPY SHE WAS OFF THE UNIT FOR AN MRI. PT DID PARTICIPATE UPON RETURN. PT EXPRESSED NO SUICIDAL IDEATIONS DURING GROUP. PT WILL CONTINUE TO ATTEND AND PARTICIPATE.
--- NOTE | 2018-04-30 13:30 | NUR ---
PT ALERT TO PERSON, PLACE, TIME AND SITUATION. PT MED COMPLIANT WITHOUT DIFFICULTY, MED EDUCATION PROVIDED. PT CALM, MOOD IS STABLE. PT GOAL DIRECTED TOWARDS DISCHARGE. PT DENIES ANY SUICIDAL THOUGHTS, VERBALLY CONTRACTED FOR SAFETY IS THOUGHTS ARISE, PT STATED "I'D NEVER DO THAT AGAIN." NO HALLUCINATIONS OR DELUSIONS NOTED. PT AMBULATORY THROUGHTOUT UNIT, GAIT STEADY. PT CONTINENT OF BOWEL AND BLADDER. SUTURES REAMIN INTACT TO RIGHT AND LEFT WRIST AREA, NO REDNESS OR EDEMA NOTED. PLAN IS TO MONITOR PT BEHAVIORS ON Q15 MIN SAFETY CHECKS, ENCOURAGE MED COMPLIANCE AND PROVIDE MED EDUCATION, PROVIDE EMOTIONAL SUPPORT AND 1:1 FOR PT TO VOICE FEELINGS.
--- NOTE | 2018-04-30 15:42 | NUR ---
PM GROUP THERAPY/INTERPERSONAL INTERACTIONS PT ATTENDED AND PARTICIPATED IN ALL GROUP ACTIVITIES. PT IS VERY HELPFUL, UNDERSTANDING AND EMPATHETIC TOWARD PEERS. PT EXPRESSED NO SUICIDAL IDEATIONS DURING GROUP NOR MENTIONED ANY PAIN. PT WILL CONTINUE TO ATTEND AND PARTICIPATE IN GROUP ACTIVITIES.
--- NOTE | 2018-04-30 16:36 | NUR ---
Met with pt and provided resources and coping skills as well as relaxation techniques. Facilitated family meeting and safety plan meeting with daughter Clive who agreed to safety plan and confirmed all knives are locked up and there are no firearms in the home. Discussed plan for coverage. Clive stated she can strip picker pt at 2pm tomorrow for discharge. Pt discussed reasons for living and her strengths and plan for safety and managing her back pain. Pt endorsed worrying and thinking at night about copays/financial stress. Discussed plan for covering appts and Clive stated she will cover the copay for 's appt. Discussed talking to Dr. Guzman about counseling when at appt . Copy of safety plan placed in chart under discharge tab and original given to pt. Collaborated with materials planner and Dr. Arnold and RN regarding MRI results and discharge plan.
[2018-04-30 21:18] VITALS: BP 120/61
--- NOTE | 2018-04-30 23:20 | NUR ---
PATIENT ALERT AND ORIENTED. PATIENT CONTINUES WITH SUTURES TO RIGHT AND LEFT WRIST. PATIENT WITH NO HALLUCINATIONS OR DELUSIONS. PATIENT WITH NO SUICIDAL OR HOMICIDAL IDEATIONS AT THIS TIME. PATIENT WITH PAINT TO LOWER BACK AND RIGHT SIDE OF ABDOMEN. ZOSTRIX CREAM AND IBUPROFEN GIVEN WITH HS MEDICATIONS. PATIENT WITH EFFECTIVE RESULTS FROM MOTRIN. PATIENT VERBALIZED LOOKING FORWARD TO GOING HOME ON 05/01/18. PATIENT LOOKING FORWARD TO SPENDING TIME WITH HER DAUGHTER AND GRANDSON WITH WHOM SHE LIVES WITH. PATIENT STATED SHE WANTS TO GET BACK TO THE THINGS THAT SHE ENJOYS SUCH SPENDING TIME WITH FRIENDS, GOING OUT TO LUNCH, AND GOING TO THE MOVIES. PATIENT ALSO WAS ABLE TO TELL THIS NURSE THAT SHE HAD REMEMBERED THIS NURSE FROM WORKING AT THE [employer] OVER 20 YEARS AGO AND WAS ABLE TO RECALL THIS NURSE'S TITLE AT THE [employer]. PATIENT CALM, PURPOSEFUL, AND COOPERATIVE
--- NOTE | 2018-05-01 02:12 | NUR ---
24 HR chart check completed.
--- NOTE | 2018-05-01 06:00 | NUR ---
PATIENT SLETP >8 HOURS OF UNINTERRUPTED SLEEP THROUGHOUT SHIFT. Q 15 MINUTE CHECKS MAINTAINED
--- NOTE | 2018-05-01 07:15 | NUR ---
OT NOTE Pt was seen this A.M. 1:1 for 15 minute OT session with OIL SPREADER OPERATOR Remington Lee present for observation only. Upon arrival pt was supine in bed, pt identified by name and and had reports of 2/10 mid/low back pain. Pt transferred supine to sit EOB with supervision and good carry over of log roll technique for good back protection. While sitting EOB pt donned socks with supervision while bringing one leg over the other knee and pt had no reports of increased pain throughout. Pt was left sitting upright in dining room under [facility] staff supervision. Continue with POC as able. SERGIO Tierney/Saba
--- NOTE | 2018-05-01 07:20 | NUR ---
PHYSICAL THERAPY Patient seen this am for therapy visit and was in the hallway outside her room upon therapist arrival. OT engineer first assistant was present for all treatment time as observation only as patient ambulated SBA ad stephanie to activity room, 150'x 1, deomonstrating no LOB and good murtaza. Patient also able to perform eyes open/closed and tandem walk at rail without c/o, demonstrating Fair + balance. Patient returned to activity room chair at table awaiting breakfast, under [facility] staff Supervision. Will continue per POC as tolerated, total treatment time 14 minutes. Remington Lee, CABLE WIRER
--- NOTE | 2018-05-01 07:49 | NUR ---
Faxed continued review stay clinicals to Melany at [facility]. Awaiting response.
--- NOTE | 2018-05-01 07:50 | NUR ---
PT AWAKE, ALERT, EATING BREAKFAST IN THE DINING ROOM AT THIS TIME.
--- NOTE | 2018-05-01 08:07 | NUR ---
ON UNIT TO SEE PT AT THIS TIME.
[2018-05-01 08:30] VITALS: BP 148/80
[2018-05-01] MEDS ORDERED: DULOXETINE HCL60 MG PO (09:20)
[2018-05-01] MEDS ORDERED: GABAPENTIN TAB600 MG PO (09:20)
[2018-05-01] MEDS ORDERED: Zostrix 0.1% T (09:20)
--- NOTE | 2018-05-01 09:20 | NUR ---
MADE AWARE OF PLANNED DISCHARGE BACK TO HOME AT 2PM, STATES WILL BE UP TO SEE PT BEFORE DISCHARGE AND WILL REVIEW MRI RESULTS WELL.
--- NOTE | 2018-05-01 09:50 | NUR ---
ON UNIT TO SEE PT AT THIS TIME, AWARE OF DISCHARGE FOR TODAY.
--- NOTE | 2018-05-01 12:03 | NUR ---
PERSONAL DAILY GOAL PT PDG IS "TO FOCUS ON SELF-CARE WHEN I GET HOME. TO REALIZE THAT IT'S OKAY TO TAKE TIME FOR MYSELF"
--- NOTE | 2018-05-01 12:04 | NUR ---
AM GROUP THERAPY/SELF-CARE PT ATTENDED AND PARTICIPATED IN ALL GROUP ACTIVITIES. PT EXPRESSED NO SUICIDAL IDEATIONS OR ISSUES OF PAIN DURING GROUP. PT WILL BE DISCHARGED FROM THE UNIT THIS AFTERNOON.
--- NOTE | 2018-05-01 12:23 | NUR ---
P- PREPARING FOR DISCHARGE. I- ORIENTATION, MOOD AND BEHAVIOR ASSESSED. ASSESSED PT FOR SI/HI, INTENT OR PLAN. ASSESSED FOR EVIDENCE OF SENSORY DISTURBANCES. MEDICATIONS ADMINISTERED PER PHYSICIAN'S ORDERS. PRN MOTRIN GIVEN FOR BACK PAIN WITH AM MED PASS. MEDICATION TEACHING PROVIDED. DISCUSSED PT'S PENDING DISCHARGE FOR TODAY, ALLOWED PT TO EXPRESS FEELINGS. ENCOURAGED PT TO ATTEND AND PARTICIPATE IN [facility] GROUPS AND ACTIVITIES. R- PT IS ALERT AND ORIENTED X4. MEMORY INTACT. RESPS EASY AND EVEN ON ROOM AIR. MOOD IS STABLE, AFFECT IS APPROPRIATE. SPEECH IS WNL AND COHERENT, ABLE TO MAKE NEEDS KNOWN WITHOUT DIFFICULTY. PT DENIES SI/HI, INTENT OR PLAN. CONTRACTED FOR SAFETY, PT STATES "YEAH, I'M NEVER GOING TO DO THAT AGAIN. THAT WAS STUPID". PT RECEPTIVE TO 1:1 AND MEDICATION TEACHING. PT STATES SHE IS FEELING READY TO GO HOME, VOICES POSITIVE PLANS FOR THE FUTURE AND EXPRESSED UNDERSTANDING OF ALL MEDICATION TEACHING. PT ATTENDING MORNING GROUP AND ACTIVELY PARTICIPATED. P- CONTINUE CURRENT TREATMENT, CONTINUE PREPARATIONS FOR DISCHARGE TODAY AT 2PM.
--- NOTE | 2018-05-01 12:29 | NUR ---
ALL DISCHARGE INSTRUCTIONS REVIEWED WITH PT, PT EXPRESSED UNDERSTANDING OF ALL. ALL QUESTIONS ANSWERED. SCRIPTS PROVIDED TO PT INCLUDING HANDWRITTEN WORK SLIP BY .
--- NOTE | 2018-05-01 13:59 | NUR ---
PT DISCHARGED AT THIS TIME TO HOME WITH [facility] VIA PRIVATE VEHICLE. ALL PERSONAL BELONGINGS WERE SENT WITH THE PT. DISCHARGE INSTRUCTIONS WERE SENT WITH THE PT. PT VERBALIZED UNDERSTANDING OF ALL. ENCOURAGED PT TO PHONE THE UNIT WITH ANY QUESTIONS THAT MAY ARISE. PT VERBALIZED AGREEMENT AND APPRECIATION FOR THE CARE RECIEVED ON THE UNIT.
--- NOTE | 2018-05-01 14:45 | NUR ---
LCD 05/02 BRD 05/03 per Melany at [facility]. Auth # [id number]
--- NOTE | 2018-05-01 14:48 | NUR ---
Faxed discharge to Melany at [facility]
--- NOTE | 2018-05-01 15:43 | NUR ---
PHYSICAL THERAPY CO-SIGN I approve of the Phyical Therapy notes written above. ROMY JOSEPH PT
--- NOTE | 2018-05-02 08:32 | NUR ---
OCCUPATIONAL THERAPY CO-SIGN I approve of the Occupational Therapy notes written above. JODIE HUFFMAN OTR/Saba
== END 2018-05-01 13:59 | disposition home or self-care (01) | DRG 885 ==
LOC: ED 12:04 → 3N 15:36 → EDHOLD 15:36 → 3N 16:31
PROVIDERS: Internal Medicine; Student in an Organized Health Care Education/Training Program; ADMIT Psychiatry & Neurology Psychiatry
DX: F33.9 Major depressive disorder, recurrent, unspecified (principal); A41.9 Sepsis, unspecified organism; R65.20 Severe sepsis without septic shock; N17.0 Acute kidney failure with tubular necrosis; E87.2 Acidosis; E44.0 Moderate protein-calorie malnutrition; Z68.41 Body mass index [BMI] 40.0-44.9, adult; D64.9 Anemia, unspecified; M17.12 Unilateral primary osteoarthritis, left knee; E03.9 Hypothyroidism, unspecified; E78.2 Mixed hyperlipidemia; E66.01 Morbid (severe) obesity due to excess calories; X78.8XXA Intentional self-harm by other sharp object, initial encounter; S61.512A Laceration without foreign body of left wrist, initial encounter; S61.511A Laceration without foreign body of right wrist, initial encounter; G89.29 Other chronic pain; M54.9 Dorsalgia, unspecified; E78.5 Hyperlipidemia, unspecified; E11.65 Type 2 diabetes mellitus with hyperglycemia; E87.8 Other disorders of electrolyte and fluid balance, not elsewhere classified; E80.6 Other disorders of bilirubin metabolism; Z90.710 Acquired absence of both cervix and uterus; Z90.49 Acquired absence of other specified parts of digestive tract; Z80.3 Family history of malignant neoplasm of breast; Z87.442 Personal history of urinary calculi; Z83.3 Family history of diabetes mellitus; Z82.49 Family history of ischemic heart disease and other diseases of the circulatory system; Y93.89 Activity, other specified; Y92.091 Bathroom in other non-institutional residence as the place of occurrence of the external cause; Y99.8 Other external cause status

== ENCOUNTER → 2018-05-08 | Outpatient (CLI) | payer OTHER ==
[~2018-05-08] MED LIST changes: +DULOXETINE HCL60 MG PO; +GABAPENTIN TAB600 MG PO; +Zostrix 0.1% T
== END | disposition home or self-care (01) ==
LOC: WOUNDCARE 01:47
DX: S61.501A Unspecified open wound of right wrist, initial encounter (principal); S61.502A Unspecified open wound of left wrist, initial encounter; E11.9 Type 2 diabetes mellitus without complications; I10 Essential (primary) hypertension; E03.9 Hypothyroidism, unspecified; E78.5 Hyperlipidemia, unspecified; M54.9 Dorsalgia, unspecified; G89.29 Other chronic pain; M17.12 Unilateral primary osteoarthritis, left knee; F41.9 Anxiety disorder, unspecified; F32.9 Major depressive disorder, single episode, unspecified; X58.XXXA Exposure to other specified factors, initial encounter; Y93.89 Activity, other specified; Y92.89 Other specified places as the place of occurrence of the external cause; Y99.8 Other external cause status

== ENCOUNTER → 2019-03-31 | Outpatient (CLI) | payer OTHER | END | disposition home or self-care (01) | LOC: MAMMO 13:18 | DX: Z12.31 Encounter for screening mammogram for malignant neoplasm of breast (principal) ==

== ENCOUNTER → 2020-04-06 | Outpatient (CLI) | payer OTHER | END | disposition home or self-care (01) | LOC: MAMMO 00:34 | PROVIDERS: ATTEND Nurse Practitioner Family | DX: Z12.31 Encounter for screening mammogram for malignant neoplasm of breast (principal) ==

== ENCOUNTER → 2021-05-06 | Outpatient (CLI) | payer OTHER | END | disposition home or self-care (01) | LOC: COVID19 15:07 | PROVIDERS: ATTEND Family Medicine | DX: Z11.52 Encounter for screening for COVID-19 (principal) ==

== ENCOUNTER → 2021-05-16 | Outpatient (CLI) | payer OTHER | END | disposition home or self-care (01) | LOC: MAMMO 06:50 | PROVIDERS: ATTEND Nurse Practitioner Family | DX: Z12.31 Encounter for screening mammogram for malignant neoplasm of breast (principal); R92.0 Mammographic microcalcification found on diagnostic imaging of breast ==

== ENCOUNTER 2021-07-02 11:12 | Emergency (ER) | payer OTHER ==
[~2021-07-02] VITALS: Ht 157.4 cm; Wt 105.2 kg
[2021-07-02] MEDS ORDERED: IBUPROFEN600 MG PO (13:23)
== END 2021-07-02 13:26 | disposition home or self-care (01) ==
LOC: ED 11:12
DX: M25.562 Pain in left knee (principal)

== ENCOUNTER → 2021-07-11 | Outpatient (CLI) | payer OTHER ==
[~2021-07-11] MED LIST changes: +IBUPROFEN600 MG PO
[2021-07-11 14:15] LABS: BASO % 0.3 % (0.0-1.0); EOS # 0.2 10*3/uL (0.0-0.4); EOS % 2.6 % (1.0-4.0); HEMATOCRIT 41.5 % (37.0-47.0); LYMPH # 1.6 10*3/uL (1.3-4.4); LYMPH % 27.5 % (27.0-41.0); MEAN CELL VOLUME 86.1 fl (81.0-99.0); MEAN CORPUSCULAR HGB 28.2 pg (27.0-31.0); MEAN CORPUSCULAR HGB CONC 32.8 g/dl (33.0-37.0); MEAN PLATELET VOLUME 9.4 fl (9.6-12.3); MONO # 0.4 10*3/uL (0.1-1.0); MONO % 6.9 % (3.0-9.0); NEUT # 3.6 10*3/uL (2.3-7.9); NEUT % 62.4 % (47.0-73.0); PLATELET COUNT AUTOMATED 228 10*3/uL (130-400); RED BLOOD COUNT 4.82 10*6/uL (4.10-5.10); RED CELL DISTRI WIDTH 12.8 % (0-14.5); WHITE BLOOD COUNT 5.8 10*3/uL (4.8-10.8)
[2021-07-11 15:07] LABS: BODY FLUID WBC 706 /uL
[2021-07-11 16:23] LABS: BF LYMPHOCYTES 45 %; BF MONOCYTES 31 %; BF NEUTROPHILS 23 %
[2021-07-12 13:05] LABS: ACID FAST SPEC PROCESSING Direct Inoculation (.)
== END | disposition home or self-care (01) ==
LOC: LAB 13:52
PROVIDERS: ATTEND Orthopaedic Surgery
DX: M25.462 Effusion, left knee (principal)

== ENCOUNTER → 2022-03-27 | Outpatient (CLI) | payer OTHER | END | disposition home or self-care (01) | LOC: RAD 03-24 08:30 | PROVIDERS: ATTEND Nurse Practitioner | DX: M85.852 Other specified disorders of bone density and structure, left thigh (principal) ==

== ENCOUNTER → 2022-06-22 | Outpatient (CLI) | payer OTHER | END | disposition home or self-care (01) | LOC: MAMMO 08:11 | PROVIDERS: ATTEND Nurse Practitioner | DX: Z12.31 Encounter for screening mammogram for malignant neoplasm of breast (principal) ==

== ENCOUNTER → 2023-07-23 | Outpatient (CLI) | payer OTHER | END | disposition home or self-care (01) | LOC: MAMMO 08:34 | PROVIDERS: ATTEND Nurse Practitioner | DX: Z12.31 Encounter for screening mammogram for malignant neoplasm of breast (principal) ==

== ENCOUNTER → 2024-07-24 | Outpatient (CLI) | payer OTHER | END | disposition home or self-care (01) | LOC: MAMMO 00:17 | PROVIDERS: ATTEND Nurse Practitioner | DX: Z12.31 Encounter for screening mammogram for malignant neoplasm of breast (principal) ==

== ENCOUNTER 2024-09-23 14:34 | Emergency (ER) | payer OTHER, MEDICAID ==
[~2024-09-23] VITALS: Ht 157.4 cm; Wt 109.8 kg
[2024-09-23] MEDS ORDERED: Acetaminophen/Hydrocodone 5 MG/325 MG TABLET PO ONE (14:55)
== END 2024-09-23 17:18 | disposition home or self-care (01) ==
LOC: ED 14:34
DX: S80.01XA Contusion of right knee, initial encounter (principal); I10 Essential (primary) hypertension; G43.909 Migraine, unspecified, not intractable, without status migrainosus; F32.A Depression, unspecified; F41.9 Anxiety disorder, unspecified; Z79.899 Other long term (current) drug therapy; Z90.710 Acquired absence of both cervix and uterus; Z98.890 Other specified postprocedural states; V09.9XXA Pedestrian injured in unspecified transport accident, initial encounter; Y93.89 Activity, other specified; Y92.89 Other specified places as the place of occurrence of the external cause; Y99.8 Other external cause status

== ENCOUNTER → 2024-11-14 | Outpatient (CLI) | payer OTHER, MEDICAID | END | disposition home or self-care (01) | LOC: RAD 10:08 | PROVIDERS: ATTEND Nurse Practitioner | DX: Z13.820 Encounter for screening for osteoporosis (principal); M81.0 Age-related osteoporosis without current pathological fracture; N95.9 Unspecified menopausal and perimenopausal disorder ==